=== PATIENT | male | born 1945 | race Caucasian/White ===

== ENCOUNTER 2022-01-05 10:32 | Observation (INO) | payer MEDICARE ==
[2022-01-05] MEDS ORDERED: Sodium Chloride 0.9% 1000 ML 1,000 ML IV STA (10:41)
[2022-01-05] MEDS ORDERED: Sodium Chloride 0.9% 1000 ML 1,000 ML ONE (11:03)
--- NOTE | 2022-01-05 11:05 | ERPHSYRPT ---
- History of Present Illness Time Seen by Provider: 01/05/22 10:45 Source: patient, family Exam Limitations: clinical condition Patient Subjective Stated Complaint: pt sent over from coumadin clinic today for abnormal labs and weakness, he states he lost balance and fell last week, states hit hes head and abd, has bruising to abd Triage Nursing Assessment: pt alert, arrived per wc, alert, resp easy, skin w/d/p, abd soft with bruising to abd, has edema to lower legs with redness that is chronic for him, Physician History: Patient is a 76-year-old male who is followed in Coumadin clinic who was found today to have a globin of an INR of 2.2 and a sodium of 125 his last measured sodium was 124 and he does have problems with chronic hyponatremia. He was sent to the ER because he is a little bit confused and very lethargic and his is concerned. He did fall approximately a week ago he did hit his head and he did hit his abdomen and he has bruising of the abdominal wall. Timing/Duration: week(s) (1) Severity: moderate Modifying Factors: Improves With: nothing Associated Symptoms: malaise Allergies/Adverse Reactions: Penicillins Allergy (Verified 01/05/22 10:50) strawberry Allergy (Verified 01/05/22 10:50) watermelon Allergy (Verified 01/05/22 10:50) Home Medications: Brimonidine Tartrate 1 drop OP BID 08/01/19 [History] Brimonidine/Dorzolamide/Pf [Brimonidine 0.15%-Dorzolam 2%] 1 drop OP BID 08/01/19 [History] Budesonide/Formoterol Fumarate [Symbicort 160-4.5 Mcg Inhaler] 1 puff IH BID 08/01/19 [History] Bumetanide 1 mg PO BID@0800,1400 08/01/19 [History] Calcium Citrate/Vitamin D3 [Calcium Citrate - Vit D Caplet] 1 tab PO DAILY [History] Cyanocobalamin (Vitamin B-12) [Vitamin B-12] 500 mcg PO DAILY 08/01/19 [History] Docusate Sodium 100 mg [Colace 100 MG] 100 mg PO DAILY 08/01/19 [History] Famotidine [Pepcid] 40 mg PO DAILY 08/01/19 [History] Finasteride 5 mg PO DAILY 08/01/19 [History] Hydrocodone/Acetaminophen [Hydrocodon-Acetaminophn 10-325] 1 tab PO Q6H PRN PRN 08/01/19 [History] Levothyroxine Sodium 50 mcg PO QAM 08/01/19 [History] Magnesium Oxide 400 mg [Mag-Ox 400] 400 mg PO DAILY 08/01/19 [History] Metoprolol Tartrate 25 mg [Lopressor 25MG Tab] 25 mg PO BID 08/01/19 [History] Montelukast Sodium 10 mg [Singulair 10 MG] 10 mg PO DAILY 08/01/19 [History] Netarsudil Mesylat/Latanoprost [Rocklatan 0.02%-0.005% Eye Drp] 1 drop OP HS 08/01/19 [History] Potassium Chloride 50 meq PO QID 08/01/19 [History] Theophylline Anhydrous 300 mg* [Theodur 300MG] 300 mg PO BID 08/01/19 [Histo ry] Warfarin Sodium 2 mg [Coumadin 2 MG] 2 mg PO SUMOWEFRSA@1800 08/01/19 [History] Lovastatin 10 mg PO HS 08/15/19 [History] Nitroglycerin [Nitrostat] 0.4 mg SL Q5MIN PRN MR X 3 PRN 08/15/19 [History] Zolpidem Tartrate 5 mg PO HS 08/15/19 [History] metOLazone [Metolazone] 2.5 mg PO MOWEFR 08/15/19 [History] Buspirone HCl [Buspar] 5 mg PO BID 04/24/21 [History] Dorzolamide HCl/Pf [Dorzolamide 2% Eye Drop] 2 drops OP TID 06/05/21 [History] Amiloride HCl 5 mg PO .DAILY @ 2PM 07/08/21 [History] Tamsulosin HCl 0.4 mg [Flomax 0.4 MG] 0.4 mg PO DAILY 01/01/22 [History] Hx Tetanus, Diphtheria Vaccination/Date Given: No Hx Influenza Vaccination/Date Given: Yes Hx Pneumococcal Vaccination/Date Given: Yes Immunizations Up to Date: Yes Travel Risk - International Travel Have you traveled outside of the country in past 3 weeks: No - Coronavirus Screening Are you exhibiting any of the following symptoms?: No Close contact with a COVID-19 positive Pt in past 14-21 Days: No - Vaccine Status Have you recieved a Covid-19 vaccination: Yes Director Of Institutional Giving: Pfizer - Vaccination Dates Date of 2cond Vaccination (if applicable): 2020 - Review of Systems Constitutional: Lethargy, Malaise, Weakness, No Fever, No Chills Eyes: No Symptoms Ears, Nose, & Throat: No Symptoms Respiratory: No Cough, No Dyspnea Cardiac: No Chest Pain, No Edema, No Syncope Abdominal/Gastrointestinal: Abdominal Pain, Other (Ecchymoses anterior abdominal wall), No Nausea, No Vomiting, No Diarrhea Genitourinary Symptoms: No Dysuria Musculoskeletal: No Back Pain, No Neck Pain Skin: Rash Neurological: No Dizziness, No Focal Weakness, No Sensory Changes Psychological: No Symptoms Endocrine: No Symptoms All Other Systems: Reviewed and Negative - Past Medical History Pertinent Past Medical History: Yes Neurological History: No Pertinent History ENT History: No Pertinent History Cardiac History: Congestive Heart Failure, Coronary Artery Disease, Hypertension Respiratory History: COPD Endocrine Medical History: Hypothyroidism Musculoskeletal History: Arthritis GI Medical History: Hernia Male Reproductive Disorders: Prostate Problems - Past Surgical History Past Surgical History: Yes Cardiac: CABG, Cardiac Catheterization - Social History Smoking Status: Former smoker Exposure to second hand smoke: No Drug Use: none Patient Lives Alone: No - Nursing Vital Signs Nursing Vital Signs: Initial Vital Signs Temperature 97.2 F 01/05/22 10:37 Pulse Rate 84 01/05/22 10:37 Respiratory Rate 18 01/05/22 10:37 Blood Pressure 123/84 01/05/22 10:37 O2 Sat by Pulse Oximetry 94 L 01/05/22 10:37 Pain Scale Pain Intensity 0 - Physical Exam General Appearance: moderate distress, alert Eye Exam: PERRL/EOMI, eyes nml inspection Ears, Nose, Throat Exam: normal ENT inspection, TMs normal, pharynx normal, moist mucous membranes Neck Exam: normal inspection, non-tender, supple, full range of motion Respiratory Exam: normal breath sounds, lungs clear, No respiratory distress Cardiovascular Exam: regular rate/rhythm, normal heart sounds, normal peripheral pulses Gastrointestinal/Abdomen Exam: soft, normal bowel sounds, tenderness, No mass Back Exam: normal inspection, normal range of motion, No CVA tenderness, No vertebral tenderness Extremity Exam: normal inspection, normal range of motion, pelvis stable Neurologic Exam: alert, oriented x 3, cooperative, normal mood/affect, nml cerebellar function, nml station & gait, sensation nml, No motor deficits Skin Exam: normal color, warm, dry, No rash Lymphatic Exam: No adenopathy SpO2 Interpretation: normal SpO2: 94 O2 Delivery: Room Air - Course Nursing assessment & vital signs reviewed: Yes EKG Interpreted by Me: RATE (132), A-fib, NORMAL AXIS - Radiology Exams Chest X-ray Interpretation: Other (chest x-ray no acute changes findings of COPD) Ordered Tests: Active Orders 24 hr Category Date Time Status EKG-ER Only STAT Care 01/05/22 10:41 Active IV Insertion STAT Care 01/05/22 10:41 Active ABDOMEN AND PELVIS W CONTRAST [CT] Stat Exams 01/05/22 10:42 Ordered CHEST 1 VIEW (PORTABLE) Stat Exams 01/05/22 11:22 Completed HEAD WITHOUT CONTRAST [CT] Stat Exams 01/05/22 11:57 Taken AMYLASE Stat Lab 01/05/22 11:03 Completed BLOOD CULTURE Stat Lab 01/05/22 11:03 Received CBC W DIFF Stat Lab 01/05/22 11:03 Completed CMP Stat Lab 01/05/22 11:03 Completed LIPASE Stat Lab 01/05/22 11:03 Completed Lactic Acid Stat Lab 01/05/22 10:56 Completed Manual Differential NC Stat Lab 01/05/22 11:03 Completed TROPONIN Q3H Lab 01/05/22 11:03 Completed TROPONIN Q3H Lab 01/05/22 13:45 Ordered TROPONIN Q3H Lab 01/05/22 16:45 Ordered TROPONIN Q3H Lab 01/05/22 19:45 Ordered TROPONIN Q3H Lab 01/05/22 22:45 Ordered UA W/RFX CULTURE Stat Lab 01/05/22 11:28 Ordered Medication Summary Generic Name Dose Route Start Last Admin Trade Name Freq PRN Reason Stop Dose Admin Meropenem 1 g/ Sodium Chloride 100 mls @ 200 mls/hr 01/05/22 11:59 IV 01/05/22 12:28 STAT ONE Discontinued Medications Generic Name Dose Route Start Last Admin Trade Name Freq PRN Reason Stop Dose Admin Methylprednisolone Sodium 0 mg 01/05/22 11:50 01/05/22 11:53 Succinate 125 mg/ Sterile IV 01/05/22 11:51 125 mg Water 2 ml STAT ONE Administration Diphenhydramine HCl 50 mg 01/05/22 11:49 01/05/22 11:52 Diphenhydramine Hcl 50 Mg/Ml Vial IV 01/05/22 11:50 50 mg STAT ONE Administration Diphenhydramine HCl Confirm 01/05/22 11:51 Diphenhydramine Hcl 50 Mg/Ml Vial Administered 01/05/22 11:52 Dose 50 mg .ROUTE .STK-MED ONE Sodium Chloride 1,000 mls @ 999 mls/hr 01/05/22 10:41 01/05/22 11:04 Sodium Chloride 0.9% 1000 Ml IV 01/05/22 11:41 999 mls/hr .Q1H1M STA Administration Sodium Chloride Confirm 01/05/22 11:03 Sodium Chloride 0.9% 1000 Ml Administered 01/05/22 11:04 Dose 1,000 mls @ ud .ROUTE .STK-MED ONE Methylprednisolone Sodium Succinate Confirm 01/05/22 11:51 Methylprednis Sod Succ 125 Mg/2 Ml Vial Administered 01/05/22 11:52 Dose 125 mg .ROUTE .STK-MED ONE Sterile Water Confirm 01/05/22 11:51 Water For Injection,Sterile 10 Ml Vial Administered 01/05/22 11:52 Dose 10 ml IJ .STK-MED ONE Lab/Rad Data: Laboratory Result Diagrams 01/05/22 11:03 01/05/22 11:03 Laboratory Results 01/05/22 01/05/22 01/05/22 Range/Units 11:03 11:03 11:03 WBC (4.0-10.5) K/mm3 RBC (4.1-5.6) M/mm3 Hgb (12.5-18.0) gm/dl Hct (42-50) % MCV (78-100) fl MCH (26-32) pg MCHC (32-36) g/dl RDW (11.5-14.0) % Plt Count (150-450) K/mm3 MPV (7.5-11.0) fl Sodium 125 L (137-145) mmol/L Potassium 4.2 (3.5-5.1) mmol/L Chloride 89 L (98-107) mmol/L Carbon Dioxide 20 L (22-30) mmol/L Anion Gap 19.6 H (5-15) MEQ/L BUN 32 H (9-20) mg/dL Creatinine 1.21 (0.66-1.25) mg/dL Estimated GFR > 60.0 ML/MIN Glucose 129 H (74-106) mg/dL Lactic Acid (0.4-2.0) Calcium 9.7 (8.4-10.2) mg/dL Total Bilirubin 2.00 H (0.2-1.3) mg/dL AST 34 (17-59) U/L ALT 24 (0-50) U/L Alkaline Phosphatase 107 (38-126) U/L Troponin I 0.025 (0.000-0.034) ng/mL Serum Total Protein 8.3 H (6.3-8.2) g/dL Albumin 4.7 (3.5-5.0) g/dL Amylase 128 H (30-110) U/L Lipase 337 H (23-300) U/L Theophylline 28.9 H* (10-20) ug/mL 01/05/22 01/05/22 Range/Units 11:03 10:56 WBC 19.2 H (4.0-10.5) K/mm3 RBC 5.69 H (4.1-5.6) M/mm3 Hgb 18.0 (12.5-18.0) gm/dl Hct 49.7 (42-50) % MCV 87.3 (78-100) fl MCH 31.6 (26-32) pg MCHC 36.2 H (32-36) g/dl RDW 16.8 H (11.5-14.0) % Plt Count 273 (150-450) K/mm3 MPV 11.3 H (7.5-11.0) fl Sodium (137-145) mmol/L Potassium (3.5-5.1) mmol/L Chloride (98-107) mmol/L Carbon Dioxide (22-30) mmol/L Anion Gap (5-15) MEQ/L BUN (9-20) mg/dL Creatinine (0.66-1.25) mg/dL Estimated GFR ML/MIN Glucose (74-106) mg/dL Lactic Acid 3.6 H (0.4-2.0) Calcium (8.4-10.2) mg/dL Total Bilirubin (0.2-1.3) mg/dL AST (17-59) U/L ALT (0-50) U/L Alkaline Phosphatase (38-126) U/L Troponin I (0.000-0.034) ng/mL Serum Total Protein (6.3-8.2) g/dL Albumin (3.5-5.0) g/dL Amylase (30-110) U/L Lipase (23-300) U/L Theophylline (10-20) ug/mL - Progress Progress: unchanged Discussed with : Ilene Will see patient in: hospital (observation) - Departure Departure Disposition: Observation Clinical Impression: Sepsis, Hyponatremia, Theophylline toxicity, Dehydration Condition: Fair Critical Care Time: No Referrals: [facility] [Primary Care Provider] - Follow up/PCP as directed
[2022-01-05 11:11] LABS: Hematocrit 49.7 % (42-50); Mean Cell Volume 87.3 fl (78-100); Mean Corpuscular Hemoglobin 31.6 pg (26-32); Mean Corpuscular Hgb Concent. 36.2 g/dl (32-36); Mean Platelet Volume 11.3 fl (7.5-11.0); Platelet Count 273 K/mm3 (150-450); Red Blood Count 5.69 M/mm3 (4.1-5.6); Red Cell Distribution Width 16.8 % (11.5-14.0); White Blood Count 19.2 K/mm3 (4.0-10.5)
[2022-01-05 11:22] LABS: ALBUMIN 4.7 g/dL (3.5-5.0); ALKALINE PHOSPHATASE 107 U/L (38-126); AMYLASE 128 U/L (30-110); ANION GAP 19.6 MEQ/L (5-15); BLOOD UREA NITROGEN 32 mg/dL (9-20); CHLORIDE 89 mmol/L (98-107); Calcium 9.7 mg/dL (8.4-10.2); Carbon Dioxide 20 mmol/L (22-30); Creatinine 1 1.21 mg/dL (0.66-1.25); EST GLOMERULAR FILTRATION RATE > 60.0 ML/MIN; Glucose 129 mg/dL (74-106); LIPASE 337 U/L (23-300); Potassium 4.2 mmol/L (3.5-5.1); SGOT/AST 34 U/L (17-59); SGPT/ALT 24 U/L (0-50); SODIUM 125 mmol/L (137-145); Total Protein 8.3 g/dL (6.3-8.2)
--- NOTE | 2022-01-05 11:33 | XRAY ---
Indication: Pain following fall. Comparison: April 30, 2006. Portable chest again demonstrates COPD with increasing mild bibasilar fibrosis/scarring. Heart not enlarged again with cardiac valve replacement. Bony thorax intact again with osteopenia and degenerative changes. No new/acute findings.
[2022-01-05] MEDS ORDERED: BENADRYL 50 MG/ML IV ONE (11:49)
[2022-01-05] MEDS ORDERED: solu-MEDROL 125 MG, Sterile H2O 10 ml 2 ML IV ONE ×2 (11:50)
[2022-01-05] MEDS ORDERED: solu-MEDROL ONE (11:51)
[2022-01-05] MEDS ORDERED: BENADRYL 50 MG/ML ONE (11:51)
[2022-01-05] MEDS ORDERED: Sterile H2O 10 ml IJ ONE (11:51)
[2022-01-05] MEDS ORDERED: Merrem 1 GM 1 G in Sodium Chloride 100ML MINI-BAG PLUS 100 ML IV ONE (11:59)
[2022-01-05] MEDS ORDERED: Merrem 1 GM IV ONE (12:06)
[2022-01-05] MEDS ORDERED: Sodium Chloride 0.9% 100 ML BAG 100 ML ONE (12:07)
--- NOTE | 2022-01-05 12:09 | XRAY ---
Indication: Right parietal head injury following fall days ago. Multiple contiguous axial images obtained through the head without contrast. Comparison: None Age-appropriate global atrophy with minimal periventricular degenerative micro-ischemia bilaterally. No acute intracranial hemorrhage, abnormal extra-axial fluid collection, or mass effect. Fourth ventricle is midline without hydrocephalus. Bony calvarium intact. Visualized paranasal sinuses and mastoid air cells are clear. Impression: Nonacute senile brain.
[2022-01-05 12:40] LABS: Appearance CLEAR (CLEAR); Bilirubin NEGATIVE (NEGATIVE); Dipstick done @ ? MAIN LAB; Glucose NEGATIVE (NEGATIVE); Ketones NEGATIVE (NEGATIVE); Nitrite NEGATIVE (NEGATIVE); Protein,Urine Dip NEGATIVE (Negative); RBC TRACE-INTACT Ery/ul (0-5); Specific Gravity 1.015 (1.005-1.025); Urobilinogen 0.2 mg/dL (0-1)
[2022-01-05] MEDS ORDERED: Merrem 1 GM 1 G in Sodium Chloride 100ML MINI-BAG PLUS 100 ML IV SCH (12:45)
[2022-01-05 12:54] LABS: Urine Cultured Indicated? NO
[2022-01-05 13:09] LABS: INFLUENZA A NEGATIVE (NEGATIVE); INFLUENZA B NEGATIVE (NEGATIVE); RESPIRATORY SYNCTIAL VIRUS NEGATIVE (Negative); SARS-CoV-2 Xpert Express NEGATIVE (NEGATIVE)
--- NOTE | 2022-01-05 13:24 | XRAY ---
Indication: Right head injury following fall. Right lower quadrant pain. Blood thinner therapy. Multiple contiguous images obtained through the abdomen and pelvis using 80 cc Isovue 370 contrast. Comparison: None Lung bases demonstrates pulmonary emphysema and tiny right costophrenic angle calcified granuloma. Heart not enlarged. Noncontrasted stomach and bowel loops appear nonobstructed. Appendix not visualized. Scattered descending and sigmoid diverticulosis without diverticulitis. Both kidneys enhance and excrete with a few tiny bilateral renal cysts, largest left upper pole measuring 5 mm. Urinary bladder near empty with Mata balloon catheter in situ. Inferior right lobe liver demonstrates 5 mm cyst. Gallbladder demonstrates tiny stones/gravel in the dependent portion. No free fluid/air. Remaining liver, gallbladder, pancreas, spleen, adrenal glands, kidneys, ureters, and bladder are unremarkable. Mild scattered aortoiliac calcifications. No AAA or pathologic retroperitoneal lymphadenopathy. Osseous structures intact with osteopenia and moderate L3-S1 degenerative disc disease. No ventral inguinal hernias. Impression: 1. Pulmonary emphysema, colonic diverticulosis, tiny hepatic cyst, tiny gallstones/gravel, tiny bilateral renal cysts, chronic bony findings, and old granulomatous disease. 2. Remaining CT abdomen/pelvis with contrast exam is negative.
[2022-01-05 13:44] LABS: ANISOCYTOSIS 1+; BAND 1 % (0.0-2.0); Lymphocytes 9 % (24-44); Monocyte 2 % (0.0-12.0); Platelet Estimate NORMAL (NORMAL); Total Cells Counted 100; Toxic Granulation 1+
[2022-01-05] MEDS ORDERED: Cardizem IV 50 MG/10 ML IV ONE ×2 (14:08→14:11)
[2022-01-05] MEDS: CARDIZEM DRIP 100 MG/100 ML D5W 100 ML IV PRN ×2 (14:16→23:03)
[2022-01-05] MEDS: Sodium Chloride 0.9% 1000 ML 1,000 ML IV SCH ×2 (15:41→22:31)
[2022-01-05] MEDS ORDERED: PHARMACY DOSING REQUEST MC ONE (15:53)
[2022-01-05] MEDS ORDERED: Nitrostat 0.4 MG Tablet SL PRN (16:32)
[2022-01-05] MEDS: HYDROCODONE-ACETAMIN 10-325 MG PO PRN ×2 (17:01→23:04)
[2022-01-05] MEDS: Klor Con 10 MEQ PO SCH ×2 (17:02→20:25)
[2022-01-05] MEDS: AMILORIDE HCL PO SCH (17:12)
[2022-01-05] MEDS ORDERED: MEDICATION INTERVENTION MC SCH ×3 (17:45)
[2022-01-05] MEDS: PROVENTIL 2.5 MG/3 ML NEB IH SCH (18:24)
[2022-01-05] MEDS: Advair Hfa 115/21 Common canister IH SCH (18:24)
--- NOTE | 2022-01-05 20:51 | PCM.HP ---
History of Present Illness - Chief Complaint Chief Complaint: weakness for 2-3 days History of Present Illness: is a 76 year old male.was sent to the ER because he is a little bit confused and very lethargic and his is concerned. He did fall approximately a week ago he did hit his head and he did hit his abdomen and he has bruising of the abdominal wall. Timing/Duration: week(s) (1) Severity: moderate Modifying Factors: Improves With: nothing Associated Symptoms: malaise Patient is followed in Coumadin clinic who was found today to have a globin of an INR of 2.2 and a sodium of 125 his last measured sodium was 124 and he does have problems with chronic hyponatremia. - Review of Systems Constitutional: Malaise, Weakness, No Fever, No Chills Eyes: No Symptoms Ears, Nose, & Throat: No Symptoms Respiratory: Orthopnea, Short Of Breath, No Cough Cardiac: Orthopnea, PND, No Chest Pain, No Edema, No Syncope Abdominal/Gastrointestinal: No Abdominal Pain, No Nausea, No Vomiting, No Diarrhea Genitourinary Symptoms: No Dysuria Musculoskeletal: No Back Pain, No Neck Pain Skin: No Rash Neurological: No Dizziness, No Focal Weakness, No Sensory Changes Psychological: No Symptoms Endocrine: No Symptoms Hematologic/Lymphatic: No Symptoms Immunological/Allergic: No Symptoms Medications & Allergies Home Medications: Home Medication List Brimonidine Tartrate 1 drop OP BID 08/01/19 [History Confirmed 01/05/22] Brimonidine/Dorzolamide/Pf [Brimonidine 0.15%-Dorzolam 2%] 1 drop OP BID 08/01/19 [History Confirmed 01/05/22] Budesonide/Formoterol Fumarate [Symbicort 160-4.5 Mcg Inhaler] 1 puff IH BID 08/01/19 [History Confirmed 01/05/22] Bumetanide 1 mg PO BID@0800,1400 08/01/19 [History Confirmed 01/05/22] Calcium Citrate/Vitamin D3 [Calcium Citrate - Vit D Caplet] 1 tab PO DAILY 08/01/19 [History Confirmed 01/05/22] Cyanocobalamin (Vitamin B-12) [Vitamin B-12] 500 mcg PO DAILY 08/01/19 [History Confirmed 01/05/22] Docusate Sodium 100 mg [Colace 100 MG] 100 mg PO DAILY 08/01/19 [History Confirmed 01/05/22] Famotidine [Pepcid] 40 mg PO DAILY 08/01/19 [History Confirmed 01/05/22] Finasteride 5 mg PO DAILY 08/01/19 [History Confirmed 01/05/22] Hydrocodone/Acetaminophen [Hydrocodon-Acetaminophn 10-325] 1 tab PO Q6H PRN PRN 08/01/19 [History Confirmed 01/05/22] Levothyroxine Sodium 50 mcg PO QAM 08/01/19 [History Confirmed 01/05/22] Magnesium Oxide 400 mg [Mag-Ox 400] 400 mg PO DAILY 08/01/19 [History Confirmed 01/05/22] Metoprolol Tartrate 25 mg [Lopressor 25MG Tab] 25 mg PO BID 08/01/19 [History Confirmed 01/05/22] Montelukast Sodium 10 mg [Singulair 10 MG] 10 mg PO DAILY 08/01/19 [History Confirmed 01/05/22] Netarsudil Mesylat/Latanoprost [Rocklatan 0.02%-0.005% Eye Drp] 1 drop OP HS 08/01/19 [History Confirmed 01/05/22] Potassium Chloride 50 meq PO QID 08/01/19 [History Confirmed 01/05/22] Theophylline Anhydrous 300 mg* [Theodur 300MG] 300 mg PO BID 08/01/19 [History Confirmed 01/05/22] Warfarin Sodium 2 mg [Coumadin 2 MG] 0 mg PO UD@1800 08/01/19 [History Confirmed 01/05/22] Lovastatin 10 mg PO HS 08/15/19 [History Confirmed 01/05/22] Nitroglycerin [Nitrostat] 0.4 mg SL Q5MIN PRN MR X 3 PRN 08/15/19 [History Co nfirmed 01/05/22] Zolpidem Tartrate 5 mg PO HS 08/15/19 [History Confirmed 01/05/22] metOLazone [Metolazone] 2.5 mg PO MOWEFR 08/15/19 [History Confirmed 01/05/22] Buspirone HCl [Buspar] 5 mg PO BID 04/24/21 [History Confirmed 01/05/22] Dorzolamide HCl/Pf [Dorzolamide 2% Eye Drop] 2 drops OP TID 06/05/21 [History Confirmed 01/05/22] Amiloride HCl 5 mg PO .DAILY @ 2PM 07/08/21 [History Confirmed 01/05/22] Tamsulosin HCl 0.4 mg [Flomax 0.4 MG] 0.4 mg PO DAILY 01/01/22 [History Confirmed 01/05/22] Allergies/Adverse Reactions: Allergies Allergy/AdvReac Type Severity Reaction Status Date / Time Penicillins Allergy Verified 01/05/22 10:50 strawberry Allergy Verified 01/05/22 10:50 watermelon Allergy Verified 01/05/22 10:50 - Past Medical History Past Medical History: Yes Neurological History: No Pertinent History ENT History: Cataracts, Glaucoma Cardiac History: Arrhythmia, Congestive Heart Failure, Coronary Artery Disease, Hypertension CARDIAC HISTORY: Hypertension Respiratory History: COPD Endocrine Medical History: Hypothyroidism Musculoskelatal History: Arthritis GI Medical History: Hernia Male Reproductive Disorders: Prostate Problems Comment: A-FIB - Past Surgical History Past Surgical History: Yes Cardiac History: CABG, Cardiac Catheterization, Valve Replacement GI Surgical History: Hernia Repair Male Surgical History: Prostate Surgery - Social History Smoking Status: Former smoker Exposure to second hand smoke: No Alcohol: None Drug Use: none - Physical Exam Vital Signs: Vital Signs - 24 hr Temp Pulse Resp BP BP Pulse Ox 01/05/22 20:04 99 H 21 110/68 01/05/22 20:00 96.3 F 99 H 21 110/68 98 01/05/22 19:58 97.7 F 108 H 18 116/72 96 01/05/22 19:00 102 H 21 102/77 102/77 98 01/05/22 18:26 106 H 19 97 01/05/22 18:25 105 H 20 97 01/05/22 18:00 100 H 18 114/60 114/60 97 01/05/22 17:16 96.2 F 120 H 19 123/83 98 01/05/22 17:00 113 H 19 104/70 01/05/22 16:00 117 H 17 120/82 01/05/22 15:37 108 H 118/83 01/05/22 15:05 97.6 F 55 L 16 123/83 88 L 01/05/22 15:00 120 H 123/83 99 01/05/22 12:08 94 L 01/05/22 11:36 124 H 16 107/84 95 01/05/22 10:37 97.2 F 84 18 123/84 94 L General Appearance: no apparent distress, moderate distress, alert Neurologic Exam: alert, oriented x 3, cooperative, normal mood/affect, sensation nml, No motor deficits Eye Exam: PERRL/EOMI, eyes nml inspection Ears, Nose, Throat Exam: normal ENT inspection, TMs normal, pharynx normal, moist mucous membranes Neck Exam: normal inspection, non-tender, supple, full range of motion Respiratory Exam: diminished breath sounds, crackles/rales, rhonchi, wheezing, No respiratory distress Cardiovascular Exam: irregular, capillary refill >3 sec, edema Gastrointestinal/Abdomen Exam: soft, normal bowel sounds, No tenderness, No mass Back Exam: normal inspection, normal range of motion, No CVA tenderness, No vertebral tenderness Extremity Exam: normal inspection, normal range of motion, pelvis stable Skin Exam: normal color, warm, dry, No rash Lymphatic Exam: No adenopathy Results - Labs Lab/Micro Results: Lab Results-Last 24 Hours 01/05/22 01/05/22 01/05/22 Range/Units 10:56 11:03 11:03 WBC 19.2 H (4.0-10.5) K/mm3 RBC 5.69 H (4.1-5.6) M/mm3 Hgb 18.0 (12.5-18.0) gm/dl Hct 49.7 (42-50) % MCV 87.3 (78-100) fl MCH 31.6 (26-32) pg MCHC 36.2 H (32-36) g/dl RDW 16.8 H (11.5-14.0) % Plt Count 273 (150-450) K/mm3 MPV 11.3 H (7.5-11.0) fl Segmented Neutrophils 88 H (36.-66.) % Band Neutrophils 1 (0.0-2.0) % Lymphocytes (Manual) 9 L (24-44) % Monocytes (Manual) 2 (0.0-12.0) % Toxic Granulation 1+ Platelet Estimate NORMAL (NORMAL) RBC Morphology ABNORMAL Anisocytosis 1+ Sodium 125 L (137-145) mmol/L Potassium 4.2 (3.5-5.1) mmol/L Chloride 89 L (98-107) mmol/L Carbon Dioxide 20 L (22-30) mmol/L Anion Gap 19.6 H (5-15) MEQ/L BUN 32 H (9-20) mg/dL Creatinine 1.21 (0.66-1.25) mg/dL Estimated GFR > 60.0 ML/MIN Glucose 129 H (74-106) mg/dL Lactic Acid 3.6 H (0.4-2.0) Calcium 9.7 (8.4-10.2) mg/dL Total Bilirubin 2.00 H (0.2-1.3) mg/dL AST 34 (17-59) U/L ALT 24 (0-50) U/L Alkaline Phosphatase 107 (38-126) U/L Troponin I (0.000-0.034) ng/mL Serum Total Protein 8.3 H (6.3-8.2) g/dL Albumin 4.7 (3.5-5.0) g/dL Amylase 128 H (30-110) U/L Lipase 337 H (23-300) U/L Procalcitonin (0.030-0.080) ng/mL Urinalys Dipstick Clnc Urine Color (YELLOW) Urine Appearance (CLEAR) Urine pH (5-6) Ur Specific [place] (1.005-1.025) POC Urine Protein Conf (Negative) Urine Ketones (NEGATIVE) Urine Nitrite (NEGATIVE) Urine Bilirubin (NEGATIVE) Urine Urobilinogen (0-1) mg/dL Urine Leukocytes (NEGATIVE) Urine WBC (Auto) (0-5) /HPF Urine RBC (Auto) (0-2) /HPF U Hyaline Cast (Auto) (0-2) /LPF U Epithel Cells (Auto) (FEW) /HPF Urine Bacteria (Auto) (NEGATIVE) /HPF Urine RBC (0-5) Pernell/ul Ur Culture Indicated? Urine Glucose (NEGATIVE) mg/dL Theophylline (10-20) ug/mL Influenza Type A Ag (NEGATIVE) Influenza Type B Ag (NEGATIVE) RSV (PCR) (Negative) SARS-CoV-2 (PCR) (NEGATIVE) 05/10/2801/05/22 01/05/22 Range/Units 11:03 11:03 11:03 WBC (4.0-10.5) K/mm3 RBC (4.1-5.6) M/mm3 Hgb (12.5-18.0) gm/dl Hct (42-50) % MCV (78-100) fl MCH (26-32) pg MCHC (32-36) g/dl RDW (11.5-14.0) % Plt Count (150-450) K/mm3 MPV (7.5-11.0) fl Segmented Neutrophils (36.-66.) % Band Neutrophils (0.0-2.0) % Lymphocytes (Manual) (24-44) % Monocytes (Manual) (0.0-12.0) % Toxic Granulation Platelet Estimate (NORMAL) RBC Morphology Anisocytosis Sodium (137-145) mmol/L Potassium (3.5-5.1) mmol/L Chloride (98-107) mmol/L Carbon Dioxide (22-30) mmol/L Anion Gap (5-15) MEQ/L BUN (9-20) mg/dL Creatinine (0.66-1.25) mg/dL Estimated GFR ML/MIN Glucose (74-106) mg/dL Lactic Acid (0.4-2.0) Calcium (8.4-10.2) mg/dL Total Bilirubin (0.2-1.3) mg/dL AST (17-59) U/L ALT (0-50) U/L Alkaline Phosphatase (38-126) U/L Troponin I 0.025 (0.000-0.034) ng/mL Serum Total Protein (6.3-8.2) g/dL Albumin (3.5-5.0) g/dL Amylase (30-110) U/L Lipase (23-300) U/L Procalcitonin 0.256 H (0.030-0.080) ng/mL Urinalys Dipstick Clnc Urine Color (YELLOW) Urine Appearance (CLEAR) Urine pH (5-6) Ur Specific [place] (1.005-1.025) POC Urine Protein Conf (Negative) Urine Ketones (NEGATIVE) Urine Nitrite (NEGATIVE) Urine Bilirubin (NEGATIVE) Urine Urobilinogen (0-1) mg/dL Urine Leukocytes (NEGATIVE) Urine WBC (Auto) (0-5) /HPF Urine RBC (Auto) (0-2) /HPF U Hyaline Cast (Auto) (0-2) /LPF U Epithel Cells (Auto) (FEW) /HPF Urine Bacteria (Auto) (NEGATIVE) /HPF Urine RBC (0-5) Pernell/ul Ur Culture Indicated? Urine Glucose (NEGATIVE) mg/dL Theophylline 28.9 H* (10-20) ug/mL Influenza Type A Ag (NEGATIVE) Influenza Type B Ag (NEGATIVE) RSV (PCR) (Negative) SARS-CoV-2 (PCR) (NEGATIVE) 01/05/22 01/05/22 01/05/22 Range/Units 11:28 12:15 12:59 WBC (4.0-10.5) K/mm3 RBC (4.1-5.6) M/mm3 Hgb (12.5-18.0) gm/dl Hct (42-50) % MCV (78-100) fl MCH (26-32) pg MCHC (32-36) g/dl RDW (11.5-14.0) % Plt Count (150-450) K/mm3 MPV (7.5-11.0) fl Segmented Neutrophils (36.-66.) % Band Neutrophils (0.0-2.0) % Lymphocytes (Manual) (24-44) % Monocytes (Manual) (0.0-12.0) % Toxic Granulation Platelet Estimate (NORMAL) RBC Morphology Anisocytosis Sodium (137-145) mmol/L Potassium (3.5-5.1) mmol/L Chloride (98-107) mmol/L Carbon Dioxide (22-30) mmol/L Anion Gap (5-15) MEQ/L BUN (9-20) mg/dL Creatinine (0.66-1.25) mg/dL Estimated GFR ML/MIN Glucose (74-106) mg/dL Lactic Acid 3.3 H (0.4-2.0) Calcium (8.4-10.2) mg/dL Total Bilirubin (0.2-1.3) mg/dL AST (17-59) U/L ALT (0-50) U/L Alkaline Phosphatase (38-126) U/L Troponin I (0.000-0.034) ng/mL Serum Total Protein (6.3-8.2) g/dL Albumin (3.5-5.0) g/dL Amylase (30-110) U/L Lipase (23-300) U/L Procalcitonin (0.030-0.080) ng/mL Urinalys Dipstick Clnc MAIN LAB Urine Color LT.YELLOW (YELLOW) Urine Appearance CLEAR (CLEAR) Urine pH 7.0 (5-6) Ur Specific [place] 1.015 (1.005-1.025) POC Urine Protein Conf NEGATIVE (Negative) Urine Ketones NEGATIVE (NEGATIVE) Urine Nitrite NEGATIVE (NEGATIVE) Urine Bilirubin NEGATIVE (NEGATIVE) Urine Urobilinogen 0.2 (0-1) mg/dL Urine Leukocytes NEGATIVE (NEGATIVE) Urine WBC (Auto) NONE (0-5) /HPF Urine RBC (Auto) NONE (0-2) /HPF U Hyaline Cast (Auto) 3-5 (0-2) /LPF U Epithel Cells (Auto) NONE (FEW) /HPF Urine Bacteria (Auto) NONE (NEGATIVE) /HPF Urine RBC TRACE-INTACT (0-5) Pernell/ul Ur Culture Indicated? NO Urine Glucose NEGATIVE (NEGATIVE) mg/dL Theophylline (10-20) ug/mL Influenza Type A Ag NEGATIVE (NEGATIVE) Influenza Type B Ag NEGATIVE (NEGATIVE) RSV (PCR) NEGATIVE (Negative) SARS-CoV-2 (PCR) NEGATIVE (NEGATIVE) 01/05/22 01/05/22 Range/Units 13:30 17:05 WBC (4.0-10.5) K/mm3 RBC (4.1-5.6) M/mm3 Hgb (12.5-18.0) gm/dl Hct (42-50) % MCV (78-100) fl MCH (26-32) pg MCHC (32-36) g/dl RDW (11.5-14.0) % Plt Count (150-450) K/mm3 MPV (7.5-11.0) fl Segmented Neutrophils (36.-66.) % Band Neutrophils (0.0-2.0) % Lymphocytes (Manual) (24-44) % Monocytes (Manual) (0.0-12.0) % Toxic Granulation Platelet Estimate (NORMAL) RBC Morphology Anisocytosis Sodium (137-145) mmol/L Potassium (3.5-5.1) mmol/L Chloride (98-107) mmol/L Carbon Dioxide (22-30) mmol/L Anion Gap (5-15) MEQ/L BUN (9-20) mg/dL Creatinine (0.66-1.25) mg/dL Estimated GFR ML/MIN Glucose (74-106) mg/dL Lactic Acid (0.4-2.0) Calcium (8.4-10.2) mg/dL Total Bilirubin (0.2-1.3) mg/dL AST (17-59) U/L ALT (0-50) U/L Alkaline Phosphatase (38-126) U/L Troponin I 0.032 0.074 H* (0.000-0.034) ng/mL Serum Total Protein (6.3-8.2) g/dL Albumin (3.5-5.0) g/dL Amylase (30-110) U/L Lipase (23-300) U/L Procalcitonin (0.030-0.080) ng/mL Urinalys Dipstick Clnc Urine Color (YELLOW) Urine Appearance (CLEAR) Urine pH (5-6) Ur Specific [place] (1.005-1.025) POC Urine Protein Conf (Negative) Urine Ketones (NEGATIVE) Urine Nitrite (NEGATIVE) Urine Bilirubin (NEGATIVE) Urine Urobilinogen (0-1) mg/dL Urine Leukocytes (NEGATIVE) Urine WBC (Auto) (0-5) /HPF Urine RBC (Auto) (0-2) /HPF U Hyaline Cast (Auto) (0-2) /LPF U Epithel Cells (Auto) (FEW) /HPF Urine Bacteria (Auto) (NEGATIVE) /HPF Urine RBC (0-5) Pernell/ul Ur Culture Indicated? Urine Glucose (NEGATIVE) mg/dL Theophylline (10-20) ug/mL Influenza Type A Ag (NEGATIVE) Influenza Type B Ag (NEGATIVE) RSV (PCR) (Negative) SARS-CoV-2 (PCR) (NEGATIVE) - Radiology Impressions Radiology Exams & Impressions: Radiology Procedures Category Date Time Status ABDOMEN AND PELVIS W CONTRAST [CT] Stat Exams 01/05/22 10:42 Completed CHEST 1 VIEW (PORTABLE) Stat Exams 01/05/22 11:22 Completed HEAD WITHOUT CONTRAST [CT] Stat Exams 01/05/22 11:[address]/ABDOMEN AND PELVIS W CONTRAST Indication: Right head injury following fall. Right lower quadrant pain. Blood thinner therapy. Multiple contiguous images obtained through the abdomen and pelvis using 80 cc Isovue 370 contrast. Comparison: None Lung bases demonstrates pulmonary emphysema and tiny right costophrenic angle calcified granuloma. Heart not enlarged. Noncontrasted stomach and bowel loops appear nonobstructed. Appendix not visualized. Scattered descending and sigmoid diverticulosis without diverticulitis. Both kidneys enhance and excrete with a few tiny bilateral renal cysts, largest left upper pole measuring 5 mm. Urinary bladder near empty with Mata balloon catheter in situ. Inferior right lobe liver demonstrates 5 mm cyst. Gallbladder demonstrates tiny stones/gravel in the dependent portion. No free fluid/air. Remaining liver, gallbladder, pancreas, spleen, adrenal glands, kidneys, ureters, and bladder are unremarkable. Mild scattered aortoiliac calcifications. No AAA or pathologic retroperitoneal lymphadenopathy. Osseous structures intact with osteopenia and moderate L3-S1 degenerative disc disease. No ventral inguinal hernias. Impression: 1. Pulmonary emphysema, colonic diverticulosis, tiny hepatic cyst, tiny gallstones/gravel, tiny bilateral renal cysts, chronic bony findings, and old granulomatous disease. 2. Remaining CT abdomen/pelvis with contrast exam is negative. - Other Procedures and Tests Respiratory Therapy 01/05/22 17:54 Oxygen Nasal Cannula 2 lpm Respiratory Therapy Assessment DAILY Assessment/Plan (1) Sepsis Current Visit: Yes Status: Acute Qualifiers: Sepsis type: Pneumococcus Sepsis acute organ dysfunction status: with acute organ dysfunction Severe sepsis acute organ dysfunction type: unspecified Severe sepsis shock status: with septic shock Qualified Code(s): A40.3 - Sepsis due to Streptococcus pneumoniae; R65.21 - Severe sepsis with septic shock (2) Non-ST elevation SC (NSTEMI) Current Visit: Yes Status: Acute Assessment & Plan: Chief Complaint Diagnosis Sepsis Allergies Allergy/AdvReac Type Severity Reaction Status Date / Time Penicillins Allergy Verified 01/05/22 10:50 strawberry Allergy Verified 01/05/22 10:50 watermelon Allergy Verified 01/05/22 10:50 Vital Signs (Last 24 hours) Temp Pulse Resp BP BP Pulse Ox 01/05/22 20:04 99 H 21 110/68 01/05/22 20:00 96.3 F 99 H 21 110/68 98 01/05/22 19:58 97.7 F 108 H 18 116/72 96 01/05/22 19:00 102 H 21 102/77 102/77 98 01/05/22 18:26 106 H 19 97 01/05/22 18:25 105 H 20 97 01/05/22 18:00 100 H 18 114/60 114/60 97 01/05/22 17:16 96.2 F 120 H 19 123/83 98 01/05/22 17:00 113 H 19 104/70 01/05/22 16:00 117 H 17 120/82 01/05/22 15:37 108 H 118/83 01/05/22 15:05 97.6 F 55 L 16 123/83 88 L 01/05/22 15:00 120 H 123/83 99 01/05/22 12:08 94 L 01/05/22 11:36 124 H 16 107/84 95 01/05/22 10:37 97.2 F 84 18 123/84 94 L Current Medications Generic Name Dose Route Start Last Admin Trade Name Freq PRN Reason Stop Dose Admin Hydrocodone Bitart/Acetaminophen 1 tablet 01/05/22 16:32 01/05/22 17:01 Hydrocodone/Acetamin 10-325 Mg Tablet PO 01/10/22 16:31 1 tablet Q6H PRN PRN Administration PAIN Albuterol Sulfate 2.5 mg 01/05/22 19:00 01/05/22 18:24 Albuterol Sulfate 2.5 Mg/3 Ml Neb IH 02/04/22 18:59 2.5 mg QIDRT VERA Administration Amiloride HCl 5 mg 01/05/22 17:00 01/05/22 17:12 Amiloride Hcl 5 Mg Tablet PO 02/04/22 16:59 5 mg 1400 VERA Administration Buspirone HCl 5 mg 01/05/22 22:00 Buspirone Hcl 5 Mg Tablet PO 02/04/22 21:59 BID VERA Calcium Carbonate 1 tab 01/06/22 10:00 Calcium Carbonate 500 Mg/Vitamin D 1 Tab Tablet PO 02/05/22 09:59 DAILY VERA Cyanocobalamin 500 mcg 01/06/22 10:00 Cyanocobalamin 500 Mcg Tablet PO 02/05/22 09:59 DAILY VERA Docusate Sodium 100 mg 01/06/22 10:00 Docusate Sodium 100 Mg Capsule PO 02/05/22 09:59 DAILY PENDING SALE TO [facility] Enoxaparin Sodium 80 mg 01/05/22 22:00 Enoxaparin Sodium 80 Mg/0.8 Ml Syringe SQ 02/04/22 21:59 BID VERA Famotidine 40 mg 01/06/22 10:00 Famotidine 20 Mg Tablet PO 02/05/22 09:59 DAILY VERA Finasteride 5 mg 01/06/22 10:00 Finasteride 5 Mg Tablet PO 02/05/22 09:59 DAILY VERA Sodium Chloride 1,000 mls @ 150 mls/hr 01/05/22 12:15 01/05/22 15:41 Sodium Chloride 0.9% 1000 Ml IV 02/04/22 12:14 150 mls/hr .Q6H40M VERA Administration Meropenem 1 g/ Sodium Chloride 100 mls @ 200 mls/hr 01/05/22 22:00 IV 01/08/22 21:59 Q8HT VERA Diltiazem HCl 100 mls @ 5 mls/hr 01/05/22 14:07 01/05/22 20:04 Cardizem Drip 100 Mg/100 Ml D5w IV 02/04/22 14:06 10 mg/hr .Q20H PRN 10 mls/hr HEART RATE/ A-FIB Titration Protocol 5 MG/HR Latanoprost 0 ml 01/05/22 22:00 Latanoprost 2.5 Ml Bottle OP 02/04/22 21:59 HS PENDING SALE TO [facility] Levothyroxine Sodium 50 mcg 01/06/22 10:00 Levothyroxine Sodium 50 Mcg Tablet PO 02/05/22 09:59 QAM PENDING SALE TO [facility] Magnesium Oxide 400 mg 01/06/22 10:00 Magnesium Oxide 400 Mg Tablet PO 02/05/22 09:59 DAILY PENDING SALE TO [facility] Metoprolol Tartrate 25 mg 01/05/22 22:00 Metoprolol Tartrate 25 Mg Tab PO 02/04/22 21:59 BID PENDING SALE TO [facility] Miscellaneous Information 1 each 01/05/22 17:45 Medication Intervention 1 Each Each 02/04/22 17:44 .RN TO CHECK VERA Montelukast Sodium 10 mg 01/06/22 10:00 Montelukast Sodium 10 Mg Tablet PO 02/05/22 09:59 DAILY VERA Nitroglycerin 0.4 mg 01/05/22 16:32 Nitroglycerin 0.4 Mg Tablet Bottle SL 02/04/22 16:31 Q5MIN PRN MR X 3 PRN CHEST PAIN Patient Own Medication 0 each 01/05/22 22:00 Patient Own Med Misc OP 02/04/22 21:59 BID VERA Patient Own Medication 0 each 01/05/22 22:00 Patient Own Med [facility] [place] OP 02/04/22 21:59 TID VERA Potassium Chloride 50 meq 01/05/22 17:00 01/05/22 20:25 Potassium Chloride 10 Meq Tablet PO 02/04/22 16:59 50 meq 1600,2000 VERA Administration Potassium Chloride 60 meq 01/06/22 08:00 Potassium Chloride 10 Meq Tablet PO 02/05/22 07:59 0800,1200 VERA Fluticasone/Salmeterol 2 puff 01/05/22 19:00 01/05/22 18:24 Fluticasone/Salmeterol 115/21 - 120 Puff Common Canister IH 02/04/22 18:59 2 puff BIDRT VERA Administration Simvastatin 50 mg 01/05/22 22:00 Simvastatin 10 Mg Tablet PO 02/04/22 21:59 HS PENDING SALE TO [facility] Tamsulosin HCl 0.4 mg 01/06/22 10:00 Tamsulosin Hcl 0.4 Mg Cap PO 02/05/22 09:59 DAILY PENDING SALE TO [facility] Zolpidem Tartrate 5 mg 01/05/22 22:00 Zolpidem Tartrate 5 Mg Tab PO 02/04/22 21:59 HS PENDING SALE TO [facility] Discontinued Medications Generic Name Dose Route Start Last Admin Trade Name Freq PRN Reason Stop Dose Admin Methylprednisolone Sodium 0 mg 01/05/22 11:50 01/05/22 11:53 Succinate 125 mg/ Sterile IV 01/05/22 11:51 125 mg Water 2 ml STAT ONE Administration Diltiazem HCl 10 mg 01/05/22 14:08 01/05/22 14:16 Diltiazem Hcl Iv 5 Mg/Ml Vial IV 01/05/22 14:09 10 mg STAT ONE Administration Diltiazem HCl Confirm 01/05/22 14:11 Diltiazem Hcl Iv 5 Mg/Ml Vial Administered 01/05/22 14:12 Dose 50 mg IV .STK-MED ONE Diphenhydramine HCl 50 mg 01/05/22 11:49 01/05/22 11:52 Diphenhydramine Hcl 50 Mg/Ml Vial IV 01/05/22 11:50 50 mg STAT ONE Administration Diphenhydramine HCl Confirm 01/05/22 11:51 Diphenhydramine Hcl 50 Mg/Ml Vial Administered 01/05/22 11:52 Dose 50 mg .ROUTE .STK-MED ONE Sodium Chloride 1,000 mls @ 999 mls/hr 01/05/22 10:41 01/05/22 13:50 Sodium Chloride 0.9% 1000 Ml IV 01/05/22 11:41 Infused .Q1H1M STA Infusion Sodium Chloride Confirm 01/05/22 11:03 Sodium Chloride 0.9% 1000 Ml Administered 01/05/22 11:04 Dose 1,000 mls @ ud .ROUTE .STK-MED ONE Meropenem 1 g/ Sodium Chloride 100 mls @ 200 mls/hr 01/05/22 11:59 01/05/22 13:20 IV 01/05/22 12:28 Not Given STAT ONE Sodium Chloride Confirm 01/05/22 12:07 Sodium Chloride 0.9% 100 Ml Bag Administered 01/05/22 12:08 Dose 100 mls @ ud .ROUTE .STK-MED ONE Meropenem 1 g/ Sodium Chloride 100 mls @ 200 mls/hr 01/05/22 12:45 01/05/22 13:12 IV 01/08/22 12:44 200 mls/hr Q8HT VERA Administration Meropenem Confirm 01/05/22 12:06 Meropenem 1 Gm Vial Administered 01/05/22 12:07 Dose 1 g IV .STK-MED ONE Methylprednisolone Sodium Succinate Confirm 01/05/22 11:51 Methylprednis Sod Succ 125 Mg/2 Ml Vial Administered 01/05/22 11:52 Dose 125 mg .ROUTE .STK-MED ONE Miscellaneous Information 1 each 01/05/22 17:45 Medication Intervention 1 Each Each 02/04/22 17:44 .RN TO CHECK PENDING SALE TO [facility] Miscellaneous Information 1 each 01/05/22 17:45 Medication Intervention 1 Each Each 02/04/22 17:44 .RN TO CHECK PENDING SALE TO [facility] Non-Formulary Medication 1 each 01/05/22 15:53 01/05/22 20:20 Pharmacy Dosing Request 01/05/22 15:54 1 each STAT ONE Administration Non-Formulary Medication 1 puff 01/05/22 22:00 Budesonide/Formoterol Fumarate [Symbicort 160-4.5 Mcg Inhaler] IH 02/04/22 21:59 BID VERA Sterile Water Confirm 01/05/22 11:51 Water For Injection,Sterile 10 Ml Vial Administered 01/05/22 11:52 Dose 10 ml IJ .STK-MED ONE Intake & Output (Last 24 hours) 01/03/22 01/04/22 01/05/22 01/06/22 11:59 11:59 11:59 11:59 Intake Total 996 Output Total 1400 Balance -404 Weight 84.1 kg 81.7 kg Microbiology Results (Last 24 hours) 01/05/22 11:03 Blood Blood Culture Gram Stain - Pending 01/05/22 11:03 Blood Blood Culture - Pending 01/05/22 10:55 Blood Blood Culture Gram Stain - Pending 01/05/22 10:55 Blood Blood Culture - Pending Laboratory Results (Last 24 hours) 01/05/22 01/05/22 01/05/22 17:05 13:30 12:59 WBC RBC Hgb Hct MCV MCH MCHC RDW Plt Count MPV Segmented Neutrophils Band Neutrophils Lymphocytes (Manual) Monocytes (Manual) Toxic Granulation Platelet Estimate RBC Morphology Anisocytosis Sodium Potassium Chloride Carbon Dioxide Anion Gap BUN Creatinine Estimated GFR Glucose Lactic Acid 3.3 H Calcium Total Bilirubin AST ALT Alkaline Phosphatase Troponin I 0.074 H* 0.032 Serum Total Protein Albumin Amylase Lipase Procalcitonin Urinalys Dipstick Clnc Urine Color Urine Appearance Urine pH Ur Specific [place] POC Urine Protein Conf Urine Ketones Urine Nitrite Urine Bilirubin Urine Urobilinogen Urine Leukocytes Urine WBC (Auto) Urine RBC (Auto) U Hyaline Cast (Auto) U Epithel Cells (Auto) Urine Bacteria (Auto) Urine RBC Ur Culture Indicated? Urine Glucose Theophylline Influenza Type A Ag Influenza Type B Ag RSV (PCR) SARS-CoV-2 (PCR) 01/05/22 01/05/22 01/05/22 12:15 11:28 11:03 WBC RBC Hgb Hct MCV MCH MCHC RDW Plt Count MPV Segmented Neutrophils Band Neutrophils Lymphocytes (Manual) Monocytes (Manual) Toxic Granulation Platelet Estimate RBC Morphology Anisocytosis Sodium Potassium Chloride Carbon Dioxide Anion Gap BUN Creatinine Estimated GFR Glucose Lactic Acid Calcium Total Bilirubin AST ALT Alkaline Phosphatase Troponin I Serum Total Protein Albumin Amylase Lipase Procalcitonin 0.256 H Urinalys Dipstick Clnc [facility] Urine Color LT.YELLOW Urine Appearance CLEAR Urine pH 7.0 Ur Specific [place] 1.015 POC Urine Protein Conf NEGATIVE Urine Ketones NEGATIVE Urine Nitrite NEGATIVE Urine Bilirubin NEGATIVE Urine Urobilinogen 0.2 Urine Leukocytes NEGATIVE Urine WBC (Auto) NONE Urine RBC (Auto) NONE U Hyaline Cast (Auto) 3-5 U Epithel Cells (Auto) NONE Urine Bacteria (Auto) NONE Urine RBC TRACE-INTACT Ur Culture Indicated? NO Urine Glucose NEGATIVE Theophylline Influenza Type A Ag NEGATIVE Influenza Type B Ag NEGATIVE RSV (PCR) NEGATIVE SARS-CoV-2 (PCR) NEGATIVE 01/05/22 01/05/22 01/05/22 11:03 11:03 11:03 WBC RBC Hgb Hct MCV MCH MCHC RDW Plt Count MPV Segmented Neutrophils Band Neutrophils Lymphocytes (Manual) Monocytes (Manual) Toxic Granulation Platelet Estimate RBC Morphology Anisocytosis Sodium 125 L Potassium 4.2 Chloride 89 L Carbon Dioxide 20 L Anion Gap 19.6 H BUN 32 H Creatinine 1.21 Estimated GFR > 60.0 Glucose 129 H Lactic Acid Calcium 9.7 Total Bilirubin 2.00 H AST 34 ALT 24 Alkaline Phosphatase 107 Troponin I 0.025 Serum Total Protein 8.3 H Albumin 4.7 Amylase 128 H Lipase 337 H Procalcitonin Urinalys Dipstick Clnc Urine Color Urine Appearance Urine pH Ur Specific [place] POC Urine Protein Conf Urine Ketones Urine Nitrite Urine Bilirubin Urine Urobilinogen Urine Leukocytes Urine WBC (Auto) Urine RBC (Auto) U Hyaline Cast (Auto) U Epithel Cells (Auto) Urine Bacteria (Auto) Urine RBC Ur Culture Indicated? Urine Glucose Theophylline 28.9 H* Influenza Type A Ag Influenza Type B Ag RSV (PCR) SARS-CoV-2 (PCR) 01/05/22 01/05/22 11:03 10:56 WBC 19.2 H RBC 5.69 H Hgb 18.0 Hct 49.7 MCV 87.3 MCH 31.6 MCHC 36.2 H RDW 16.8 H Plt Count 273 MPV 11.3 H Segmented Neutrophils 88 H Band Neutrophils 1 Lymphocytes (Manual) 9 L Monocytes (Manual) 2 Toxic Granulation 1+ Platelet Estimate NORMAL RBC Morphology ABNORMAL Anisocytosis 1+ Sodium Potassium Chloride Carbon Dioxide Anion Gap BUN Creatinine Estimated GFR Glucose Lactic Acid 3.6 H Calcium Total Bilirubin AST ALT Alkaline Phosphatase Troponin I Serum Total Protein Albumin Amylase Lipase Procalcitonin Urinalys Dipstick Clnc Urine Color Urine Appearance Urine pH Ur Specific [place] POC Urine Protein Conf Urine Ketones Urine Nitrite Urine Bilirubin Urine Urobilinogen Urine Leukocytes Urine WBC (Auto) Urine RBC (Auto) U Hyaline Cast (Auto) U Epithel Cells (Auto) Urine Bacteria (Auto) Urine RBC Ur Culture Indicated? Urine Glucose Theophylline Influenza Type A Ag Influenza Type B Ag RSV (PCR) SARS-CoV-2 (PCR) Orders (Last 24 hours) Category Date Time Status Up With Assistance ROUTINE Activity 01/05/22 12:10 Active Cath [Catheter-[place] Mata] STAT Care 01/05/22 12:32 Completed EKG-ER Only STAT Care 01/05/22 10:41 Completed IV Care Q1H Care 01/05/22 12:10 Active IV Insertion STAT Care 01/05/22 10:41 Completed Neuro Checks Q4H Care 01/05/22 12:[address] in Observation ROUTINE Care 01/05/22 12:10 Active Telemetry Q1H Care 01/05/22 12:10 Active Weight,Daily 0600 Care 01/05/22 12:10 Active Cardio-Pulmonary Rehab .as ordered Cons 01/05/22 16:09 Active Infection Control Consult ROUTINE Cons 01/05/22 17:47 Active 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 ROUTINE Cons 01/05/22 17:47 Active House Regular Diet Diet 01/05/22 Dinner Active Nutritional Admission Screen ONCE Diet 01/05/22 17:47 Active ABDOMEN AND PELVIS W CONTRAST [CT] Stat Exams 01/05/22 10:42 Completed CHEST 1 VIEW (PORTABLE) Stat Exams 01/05/22 11:22 Completed HEAD WITHOUT CONTRAST [CT] Stat Exams 01/05/22 11:57 Completed AMYLASE Stat Lab 01/05/22 11:03 Completed BLOOD CULTURE Stat Lab 01/05/22 11:03 Received CBC W DIFF AM.LAB Lab 01/06/22 04:00 Ordered CBC W DIFF Stat Lab 01/05/22 11:03 Completed CMP AM.LAB Lab 01/06/22 04:00 Ordered CMP Stat Lab 01/05/22 11:03 Completed COVID/FLU/RSV Panel Stat Lab 01/05/22 12:15 Completed LIPASE Stat Lab 01/05/22 11:03 Completed Lactic Acid AM.LAB Lab 01/06/22 04:00 Ordered Lactic Acid Stat Lab 01/05/22 10:56 Completed Lactic Acid Stat Lab 01/05/22 12:59 Completed Manual Differential NC Stat Lab 01/05/22 11:03 Completed PROCALCITONIN Stat Lab 01/05/22 11:03 Completed TROPONIN Q3H Lab 01/05/22 11:03 Completed TROPONIN Q3H Lab 01/05/22 13:30 Completed TROPONIN Q3H Lab 01/05/22 17:05 Completed TROPONIN Q3H Lab 01/05/22 20:40 Received TROPONIN Q3H Lab 01/05/22 22:45 Ordered Theophylline Stat Lab 01/05/22 11:03 Completed UA W/RFX CULTURE Stat Lab 01/05/22 11:28 Completed Albuterol 2.5 mg/3 ml Neb [Proventil 2.5 mg/3 ml Neb Med 01/05/22 19:00 Active ] 2.5 mg IH QIDRT Amiloride HCl Med 01/05/22 17:00 Active 5 mg PO 1400 Budesonide/Formoterol Fumarate [Symbicort 160-4.5 Mcg Med 01/05/22 22:00 Discontinued Inhaler] 1 puff IH BID Buspirone HCl 5 mg [Buspar 5 mg] Med 01/05/22 22:00 Active 5 mg PO BID Calcium Carb/Vitamin D 500 mg* [Calcium 500MG W/Vit D Med 01/06/22 10:00 Active Tablet] 1 tab PO DAILY Cyanocobalamin 500 Mcg [Vitamin B-12 500 MCG] Med 01/06/22 10:00 Active 500 mcg PO DAILY Diltiazem HCl 100 mg/100 ml [Cardizem Drip 100 mg/100 Med 01/05/22 14:07 Active ml D5w] 100 ml IV 5 mg/hr Diltiazem HCl 50 mg/10 ml [Cardizem IV 50 MG/10 ML Med 01/05/22 14:08 Discontinued *] 10 mg IV STAT ONE Diltiazem HCl 50 mg/10 ml [Cardizem IV 50 MG/10 ML Med 01/05/22 14:11 Discontinued *] 50 mg IV .STK-MED ONE Diphenhydramine HCl 50 mg/ml [Benadryl 50 mg/ml] Med 01/05/22 11:51 Discontinued 50 mg .ROUTE .STK-MED ONE Diphenhydramine HCl 50 mg/ml [Benadryl 50 mg/ml] Med 01/05/22 11:49 Discontinued 50 mg IV STAT ONE Docusate Sodium 100 mg [Docusate Sodium 100 MG] Med 01/06/22 10:00 Act beatrice 100 mg PO DAILY Enoxaparin Sodium [Enoxaparin Sodium] Med 01/05/22 22:00 Active 80 mg SQ BID Famotidine 20 mg [Pepcid 20 MG] Med 01/06/22 10:00 Active 40 mg PO DAILY Finasteride 5 mg [Proscar 5 MG] Med 01/06/22 10:00 Active 5 mg PO DAILY Fluticasone/Salmeterol [Advair Hfa 115/21 Common Med 01/05/22 19:00 Active canister*] 2 puff IH BIDRT Hydrocodone/Acetaminophen [Hydrocodone-Acetamin 10-325 Med 01/05/22 16:32 Active mg] 1 tablet PO Q6H PRN PRN Latanoprost [Xalatan] Med 01/05/22 22:00 Active See Dose Instructions OP HS Levothyroxine Sodium 50 Mcg [Synthroid 50 Mcg] Med 01/06/22 10:00 Active 50 mcg PO QAM Magnesium Oxide 400 mg [Mag-Ox 400] Med 01/06/22 10:00 Active 400 mg PO DAILY Medication Intervention Med 01/05/22 17:45 Active 1 each MC .RN TO CHECK Medication Intervention Med 01/05/22 17:45 Discontinued 1 each MC .RN TO CHECK Medication Intervention Med 01/05/22 17:45 Discontinued 1 each MC .RN TO CHECK Meropenem [Merrem 1 GM] Med 01/05/22 12:06 Discontinued 1 g IV .STK-MED ONE Meropenem [Merrem 1 GM] 1 g Med 01/05/22 12:45 Discontinued NaCl 0.9% 100 ml Mini-Bag Plus [Sodium Chloride 100ML MINI-BAG PLUS] 100 ml IV Q8HT Meropenem [Merrem 1 GM] 1 g Med 01/05/22 22:00 Active NaCl 0.9% 100 ml Mini-Bag Plus [Sodium Chloride 100ML MINI-BAG PLUS] 100 ml IV Q8HT Meropenem [Merrem 1 GM] 1 g Med 01/05/22 11:59 Discontinued NaCl 0.9% 100 ml Mini-Bag Plus [Sodium Chloride 100ML MINI-BAG PLUS] 100 ml IV STAT Methylprednis Sod Succ 125 mg* [solu-MEDROL] Med 01/05/22 11:51 Discontinued 125 mg .ROUTE .STK-MED ONE Methylprednis Sod Succ 125 mg* [solu-MEDROL] 125 mg Med 01/05/22 11:50 Discontinued Water For Injection,Sterile [Sterile H2O 10 ml] 2 ml IV STAT Metoprolol Tartrate 25 mg [Lopressor 25MG Tab] Med 01/05/22 22:00 Active 25 mg PO BID Montelukast Sodium 10 mg [Singulair 10 MG] Med 01/06/22 10:00 Active 10 mg PO DAILY NaCl 0.9% 1000 ml [Sodium Chloride 0.9% 1000 ML] 1,000 Med 01/05/22 11:03 D iscontinued ml .ROUTE UD NaCl 0.9% 1000 ml [Sodium Chloride 0.9% 1000 ML] 1,000 Med 01/05/22 12:15 Active ml IV 150 mls/hr NaCl 0.9% 1000 ml [Sodium Chloride 0.9% 1000 ML] 1,000 Med 01/05/22 10:41 Discontinued ml IV 999 mls/hr NaCl 0.9% 100Ml [Sodium Chloride 0.9% 100 ML BAG] 100 Med 01/05/22 12:07 Discontinued ml .ROUTE UD Nitroglycerin 0.4 mg Tablet [Nitrostat 0.4 MG Tablet Med 01/05/22 16:32 Active ] 0.4 mg SL Q5MIN PRN MR X 3 PRN Patient Own Med [Patient Own Medication] Med 01/05/22 22:00 Active See Dose Instructions OP BID Patient Own Med [Patient Own Medication] Med 01/05/22 22:00 Active See Dose Instructions OP TID Pharmacy Dosing Request Med 01/05/22 15:53 Discontinued 1 each MC STAT ONE Potassium Chloride 10 Meq Tab* [Klor Con 10 MEQ] Med 01/05/22 17:00 Active 50 meq PO 1600,1999 Potassium Chloride 10 Meq Tab* [Klor Con 10 MEQ] Med 01/06/22 08:00 Active 60 meq PO 0800,1200 Simvastatin 10 mg [Zocor 10MG] Med 01/05/22 22:00 Active 50 mg PO HS Tamsulosin HCl 0.4 mg [Flomax 0.4 MG] Med 01/06/22 10:00 Active 0.4 mg PO DAILY Water For Injection,Sterile [Sterile H2O 10 ml] Med 01/05/22 11:51 Discontinued 10 ml IJ .STK-MED ONE Zolpidem Tartrate 5 mg [Ambien 5 MG Tablet] Med 01/05/22 22:00 Active 5 mg PO HS OT Screen per Nursing Assess ONCE OT 01/05/22 17:47 Active PT Screen per Nursing Assess ONCE PT 01/05/22 17:47 Active Oxygen Nasal Cannula 2 lpm RT 01/05/22 17:54 Active Pulse Oximetry CONTINUOUS RT 01/05/22 12:13 Active RT Screen per Nursing Assess ONCE RT 01/05/22 17:47 Completed Respiratory Therapy Assessment DAILY RT 01/05/22 17:54 Active Transfer Order Routine Transfer 01/05/22 Completed Code(s): I21.4 - NON-ST ELEVATION (NSTEMI) MYOCARDIAL INFARCTION (3) Dehydration Current Visit: Yes Status: Acute Code(s): E86.0 - DEHYDRATION (4) Hyponatremia Current Visit: Yes Status: Acute Code(s): E87.1 - HYPO-OSMOLALITY AND HYPONATREMIA (5) Theophylline toxicity Current Visit: Yes Status: Acute Code(s): R89.2 - ABN LEV DRUG/MEDS/BIOL SUBST IN SPECIMENS FROM OTH ORG/TISS; T48.6X1A - POISONING BY ANTIASTHMATICS, ACCIDENTAL, INIT
[2022-01-05] MEDS: Merrem 1 GM 1 G in Sodium Chloride 100ML MINI-BAG PLUS 100 ML IV SCH (21:04)
[2022-01-05] MEDS: ENOXAPARIN SODIUM SQ SCH (21:04)
[2022-01-05] MEDS: BUSPAR 5 MG PO SCH (21:04)
[2022-01-05] MEDS: Lopressor 25MG Tab PO SCH (21:04)
[2022-01-05] MEDS: Xalatan OP SCH (21:04)
[2022-01-05] MEDS: PATIENT OWN MEDICATION OP SCH ×2 (21:05)
[2022-01-05] MEDS ORDERED: [UNRECOGNIZED DRUG - OTHER] OP SCH (22:00)
[2022-01-05] MEDS ORDERED: LATANOPROST OP SCH (22:00)
[2022-01-05] MEDS ORDERED: BRIMONIDINE OP SCH (22:00)
[2022-01-05] MEDS ORDERED: NON-FORMULARY ITEM (Budesonide/Formoterol Fumarate [Symbicort 160-4.5 Mcg Inhaler] 10.2 GM IH SCH (22:00)
[2022-01-05] MEDS ORDERED: [UNRECOGNIZED DRUG - OTHER] OP SCH (22:00)
[2022-01-05] MEDS ORDERED: BUSPIRONE HCL 10 MG PO SCH (22:00)
[2022-01-05] MEDS ORDERED: NETARSUDIL MESYLAT OP SCH (22:00)
[2022-01-05] MEDS ORDERED: BRIMONIDINE TARTRATE OP SCH (22:00)
[2022-01-05] MEDS ORDERED: DORZOLAMIDE OP SCH (22:00)
[2022-01-05] MEDS ORDERED: NON-FORMULARY ITEM (Dorzolamide Hcl/Pf [Dorzolamide 2% Eye Drop] 10 ML Drops) OP SCH (22:00)
[2022-01-05] MEDS ORDERED: Zocor 10MG PO SCH (22:00)
[2022-01-05] MEDS ORDERED: NON-FORMULARY ITEM (Lovastatin [Lovastatin] 10 MG Tablet) PO SCH (22:00)
[2022-01-05] MEDS: Ambien 5 MG Tablet PO SCH (22:30)
[2022-01-06 04:57] LABS: Absolute Neutrophil Ct (ANC) 14.25 (1.4-6.9); Basophil (Absolute #) 0.04 (0-0.4); Eosinophil (Absolute #) 0 (0-0.5); Hematocrit 39.8 % (42-50); Lymphocytes % 2.6 % (24.0-44.0); Mean Corpuscular Hemoglobin 32.1 pg (26-32); Mean Corpuscular Hgb Concent. 35.7 g/dl (32-36); Mean Platelet Volume 11.1 fl (7.5-11.0); Monocyte (Absolute #) 0.53 (0.0-1.3); Monocytes % 3.5 % (0.0-12.0); Neutrophil % 93.6 % (36.0-66.0); Platelet Count 219 K/mm3 (150-450); Red Blood Count 4.42 M/mm3 (4.1-5.6); Red Cell Distribution Width 16.4 % (11.5-14.0); White Blood Count 15.2 K/mm3 (4.0-10.5)
[2022-01-06] MEDS: Sodium Chloride 0.9% 1000 ML 1,000 ML IV SCH ×3 (05:04→14:10)
[2022-01-06 05:12] LABS: Hemoglobin 14.2 gm/dl (12.5-18.0)
[2022-01-06 05:20] LABS: ALBUMIN 3.3 g/dL (3.5-5.0); ALKALINE PHOSPHATASE 74 U/L (38-126); ANION GAP 13.1 MEQ/L (5-15); BLOOD UREA NITROGEN 25 mg/dL (9-20); CHLORIDE 90 mmol/L (98-107); Calcium 8.4 mg/dL (8.4-10.2); Carbon Dioxide 25 mmol/L (22-30); Creatinine 1 1.08 mg/dL (0.66-1.25); EST GLOMERULAR FILTRATION RATE > 60.0 ML/MIN; Glucose 114 mg/dL (74-106); SGOT/AST 29 U/L (17-59); SGPT/ALT 19 U/L (0-50); SODIUM 123 mmol/L (137-145)
[2022-01-06 05:27] LABS: Potassium 5.2 mmol/L (3.5-5.1)
[2022-01-06 05:49] LABS: Slide Review 1 YES
[2022-01-06] MEDS: Merrem 1 GM 1 G in Sodium Chloride 100ML MINI-BAG PLUS 100 ML IV SCH ×3 (05:59→21:41)
[2022-01-06] MEDS: PROVENTIL 2.5 MG/3 ML NEB IH SCH ×4 (06:58→19:06)
[2022-01-06] MEDS: Advair Hfa 115/21 Common canister IH SCH ×2 (07:08→19:08)
[2022-01-06] MEDS: Klor Con 10 MEQ PO SCH ×4 (07:43→21:40)
--- NOTE | 2022-01-06 08:17 | PCM.NOTE ---
Date and Time: 01/06/22814 Subjective Assessment: last 12 hours events noted. labs reviewed. no significant change in patient condition - Review of Systems Constitutional: Lethargy, Malaise, Weakness, No Fever, No Chills Eyes: No Symptoms Ears, Nose, & Throat: No Symptoms Respiratory: No Cough, No Short Of Breath Cardiac: No Chest Pain, No Edema, No Syncope Abdominal/Gastrointestinal: No Abdominal Pain, No Nausea, No Vomiting, No Diarrhea Genitourinary Symptoms: No Dysuria Musculoskeletal: No Back Pain, No Neck Pain Skin: No Rash Neurological: No Dizziness, No Focal Weakness, No Sensory Changes Psychological: No Symptoms Endocrine: No Symptoms Hematologic/Lymphatic: No Symptoms Immunological/Allergic: No Symptoms Objective Exam General Appearance: moderate distress, alert Neurologic Exam: alert, oriented x 3, cooperative, normal mood/affect, sensation nml, No motor deficits Skin Exam: normal color, warm, dry Eye Exam: PERRL, EOMI, eyes nml inspection Ears, Nose, Throat Exam: normal ENT inspection, pharynx normal, moist mucous membranes Neck Exam: normal inspection, non-tender, supple, full range of motion Respiratory Exam: normal breath sounds, lungs clear, No respiratory distress Cardiovascular Exam: regular rate/rhythm, normal heart sounds Gastrointestinal/Abdomen Exam: soft, No tenderness, No mass Extremity Exam: normal inspection, normal range of motion Back Exam: normal inspection, normal range of motion, No CVA tenderness, No vertebral tenderness Male Genitalia Exam: deferred Rectal Exam: deferred OBJECTIVE DATA Vital Signs: Vital Signs - 24 hr Temp Pulse Resp BP BP Pulse Ox 01/06/22 07:53 73 01/06/22 07:45 97.5 F 73 15 117/64 98 01/06/22 07:04 98 01/06/22 07:01 72 18 98 01/06/22 04:00 97.8 F 66 20 101/54 100 01/06/22 03:00 62 20 94/57 98 01/06/22 02:00 62 17 89/48 96 01/06/22 01:00 63 18 90/54 95 01/06/22 00:01 67 01/06/22 00:00 97.3 F 67 22 81/53 95 01/05/22 23:49 67 21 77/58 01/05/22 23:03 74 14 93/64 01/05/22 23:00 74 14 93/64 97 01/05/22 22:00 92 H 20 114/61 96 01/05/22 21:00 101 H 22 100/64 96 01/05/22 20:04 99 H 21 110/68 01/05/22 20:00 96.3 F 99 H 21 110/68 98 01/05/22 19:58 97.7 F 108 H 18 116/72 96 01/05/22 19:00 102 H 21 102/77 102/77 98 01/05/22 18:26 106 H 19 97 01/05/22 18:25 105 H 20 97 01/05/22 18:00 100 H 18 114/60 114/60 97 01/05/22 17:16 96.2 F 120 H 19 123/83 98 01/05/22 17:00 113 H 19 104/70 01/05/22 16:00 117 H 17 120/82 01/05/22 15:37 108 H 118/83 01/05/22 15:05 97.6 F 55 L 16 123/83 88 L 01/05/22 15:00 120 H 123/83 99 01/05/22 12:08 94 L 01/05/22 11:36 124 H 16 107/84 95 01/05/22 10:37 97.2 F 84 18 123/84 94 L Pain Assessment - Last Documented Pain Intensity 0 Pain Scale Used 0-10 Pain Scale Intake and Output: Intake & Output 01/03/22 01/04/22 01/05/22 01/06/22 11:59 11:59 11:59 11:59 Intake Total 2644 Output Total 2075 Balance 569 Weight 84.1 kg 85.9 kg Lab Results: Lab Results-Last 24 Hours 01/05/22 01/05/22 01/05/22 Range/Units 10:56 11:03 11:03 WBC 19.2 H (4.0-10.5) K/mm3 RBC 5.69 H (4.1-5.6) M/mm3 Hgb 18.0 (12.5-18.0) gm/dl Hct 49.7 (42-50) % MCV 87.3 (78-100) fl MCH 31.6 (26-32) pg MCHC 36.2 H (32-36) g/dl RDW 16.8 H (11.5-14.0) % Plt Count 273 (150-450) K/mm3 MPV 11.3 H (7.5-11.0) fl Gran % (36.0-66.0) % Eos # (Auto) (0-0.5) Absolute Lymphs (auto) (1.0-4.6) Absolute Monos (auto) (0.0-1.3) Lymphocytes % (24.0-44.0) % Monocytes % (0.0-12.0) % Eosinophils % (0.00-5.0) % Basophils % (0.0-0.4) % Absolute Granulocytes (1.4-6.9) Segmented Neutrophils 88 H (36.-66.) % Band Neutrophils 1 (0.0-2.0) % Lymphocytes (Manual) 9 L (24-44) % Monocytes (Manual) 2 (0.0-12.0) % Basophils # (0-0.4) Toxic Granulation 1+ Platelet Estimate NORMAL (NORMAL) RBC Morphology ABNORMAL Anisocytosis 1+ Sodium 125 L (137-145) mmol/L Potassium 4.2 (3.5-5.1) mmol/L Chloride 89 L (98-107) mmol/L Carbon Dioxide 20 L (22-30) mmol/L Anion Gap 19.6 H (5-15) MEQ/L BUN 32 H (9-20) mg/dL Creatinine 1.21 (0.66-1.25) mg/dL Estimated GFR > 60.0 ML/MIN Glucose 129 H (74-106) mg/dL Lactic Acid 3.6 H (0.4-2.0) Calcium 9.7 (8.4-10.2) mg/dL Total Bilirubin 2.00 H (0.2-1.3) mg/dL AST 34 (17-59) U/L ALT 24 (0-50) U/L Alkaline Phosphatase 107 (38-126) U/L Troponin I (0.000-0.034) ng/mL Serum Total Protein 8.3 H (6.3-8.2) g/dL Albumin 4.7 (3.5-5.0) g/dL Amylase 128 H (30-110) U/L Lipase 337 H (23-300) U/L Procalcitonin (0.030-0.080) ng/mL Urinalys Dipstick Clnc Urine Color (YELLOW) Urine Appearance (CLEAR) Urine pH (5-6) Ur Specific [place] (1.005-1.025) POC Urine Protein Conf (Negative) Urine Ketones (NEGATIVE) Urine Nitrite (NEGATIVE) Urine Bilirubin (NEGATIVE) Urine Urobilinogen (0-1) mg/dL Urine Leukocytes (NEGATIVE) Urine WBC (Auto) (0-5) /HPF Urine RBC (Auto) (0-2) /HPF U Hyaline Cast (Auto) (0-2) /LPF U Epithel Cells (Auto) (FEW) /HPF Urine Bacteria (Auto) (NEGATIVE) /HPF Urine RBC (0-5) Pernell/ul Ur Culture Indicated? Urine Glucose (NEGATIVE) mg/dL Theophylline (10-20) ug/mL Influenza Type A Ag (NEGATIVE) Influenza Type B Ag (NEGATIVE) RSV (PCR) (Negative) SARS-CoV-2 (PCR) (NEGATIVE) Slides for Path Review 01/05/22 01/05/22 01/05/22 Range/Units 11:03 11:03 11:03 WBC (4.0-10.5) K/mm3 RBC (4.1-5.6) M/mm3 Hgb (12.5-18.0) gm/dl Hct (42-50) % MCV (78-100) fl MCH (26-32) pg MCHC (32-36) g/dl RDW (11.5-14.0) % Plt Count (150-450) K/mm3 MPV (7.5-11.0) fl Gran % (36.0-66.0) % Eos # (Auto) (0-0.5) Absolute Lymphs (auto) (1.0-4.6) Absolute Monos (auto) (0.0-1.3) Lymphocytes % (24.0-44.0) % Monocytes % (0.0-12.0) % Eosinophils % (0.00-5.0) % Basophils % (0.0-0.4) % Absolute Granulocytes (1.4-6.9) Segmented Neutrophils (36.-66.) % Band Neutrophils (0.0-2.0) % Lymphocytes (Manual) (24-44) % Monocytes (Manual) (0.0-12.0) % Basophils # (0-0.4) Toxic Granulation Platelet Estimate (NORMAL) RBC Morphology Anisocytosis Sodium (137-145) mmol/L Potassium (3.5-5.1) mmol/L Chloride (98-107) mmol/L Carbon Dioxide (22-30) mmol/L Anion Gap (5-15) MEQ/L BUN (9-20) mg/dL Creatinine (0.66-1.25) mg/dL Estimated GFR ML/MIN Glucose (74-106) mg/dL Lactic Acid (0.4-2.0) Calcium (8.4-10.2) mg/dL Total Bilirubin (0.2-1.3) mg/dL AST (17-59) U/L ALT (0-50) U/L Alkaline Phosphatase (38-126) U/L Troponin I 0.025 (0.000-0.034) ng/mL Serum Total Protein (6.3-8.2) g/dL Albumin (3.5-5.0) g/dL Amylase (30-110) U/L Lipase (23-300) U/L Procalcitonin 0.256 H (0.030-0.080) ng/mL Urinalys Dipstick Clnc Urine Color (YELLOW) Urine Appearance (CLEAR) Urine pH (5-6) Ur Specific [place] (1.005-1.025) POC Urine Protein Conf (Negative) Urine Ketones (NEGATIVE) Urine Nitrite (NEGATIVE) Urine Bilirubin (NEGATIVE) Urine Urobilinogen (0-1) mg/dL Urine Leukocytes (NEGATIVE) Urine WBC (Auto) (0-5) /HPF Urine RBC (Auto) (0-2) /HPF U Hyaline Cast (Auto) (0-2) /LPF U Epithel Cells (Auto) (FEW) /HPF Urine Bacteria (Auto) (NEGATIVE) /HPF Urine RBC (0-5) Pernell/ul Ur Culture Indicated? Urine Glucose (NEGATIVE) mg/dL Theophylline 28.9 H* (10-20) ug/mL Influenza Type A Ag (NEGATIVE) Influenza Type B Ag (NEGATIVE) RSV (PCR) (Negative) SARS-CoV-2 (PCR) (NEGATIVE) Slides for Path Review 01/05/22 01/05/22 01/05/22 Range/Units 11:28 12:15 12:59 WBC (4.0-10.5) K/mm3 RBC (4.1-5.6) M/mm3 Hgb (12.5-18.0) gm/dl Hct (42-50) % MCV (78-100) fl MCH (26-32) pg MCHC (32-36) g/dl RDW (11.5-14.0) % Plt Count (150-450) K/mm3 MPV (7.5-11.0) fl Gran % (36.0-66.0) % Eos # (Auto) (0-0.5) Absolute Lymphs (auto) (1.0-4.6) Absolute Monos (auto) (0.0-1.3) Lymphocytes % (24.0-44.0) % Monocytes % (0.0-12.0) % Eosinophils % (0.00-5.0) % Basophils % (0.0-0.4) % Absolute Granulocytes (1.4-6.9) Segmented Neutrophils (36.-66.) % Band Neutrophils (0.0-2.0) % Lymphocytes (Manual) (24-44) % Monocytes (Manual) (0.0-12.0) % Basophils # (0-0.4) Toxic Granulation Platelet Estimate (NORMAL) RBC Morphology Anisocytosis Sodium (137-145) mmol/L Potassium (3.5-5.1) mmol/L Chloride (98-107) mmol/L Carbon Dioxide (22-30) mmol/L Anion Gap (5-15) MEQ/L BUN (9-20) mg/dL Creatinine (0.66-1.25) mg/dL Estimated GFR ML/MIN Glucose (74-106) mg/dL Lactic Acid 3.3 H (0.4-2.0) Calcium (8.4-10.2) mg/dL Total Bilirubin (0.2-1.3) mg/dL AST (17-59) U/L ALT (0-50) U/L Alkaline Phosphatase (38-126) U/L Troponin I (0.000-0.034) ng/mL Serum Total Protein (6.3-8.2) g/dL Albumin (3.5-5.0) g/dL Amylase (30-110) U/L Lipase (23-300) U/L Procalcitonin (0.030-0.080) ng/mL Urinalys Dipstick Clnc MAIN LAB Urine Color LT.YELLOW (YELLOW) Urine Appearance CLEAR (CLEAR) Urine pH 7.0 (5-6) Ur Specific [place] 1.015 (1.005-1.025) POC Urine Protein Conf NEGATIVE (Negative) Urine Ketones NEGATIVE (NEGATIVE) Urine Nitrite NEGATIVE (NEGATIVE) Urine Bilirubin NEGATIVE (NEGATIVE) Urine Urobilinogen 0.2 (0-1) mg/dL Urine Leukocytes NEGATIVE (NEGATIVE) Urine WBC (Auto) NONE (0-5) /HPF Urine RBC (Auto) NONE (0-2) /HPF U Hyaline Cast (Auto) 3-5 (0-2) /LPF U Epithel Cells (Auto) NONE (FEW) /HPF Urine Bacteria (Auto) NONE (NEGATIVE) /HPF Urine RBC TRACE-INTACT (0-5) Pernell/ul Ur Culture Indicated? NO Urine Glucose NEGATIVE (NEGATIVE) mg/dL Theophylline (10-20) ug/mL Influenza Type A Ag NEGATIVE (NEGATIVE) Influenza Type B Ag NEGATIVE (NEGATIVE) RSV (PCR) NEGATIVE (Negative) SARS-CoV-2 (PCR) NEGATIVE (NEGATIVE) Slides for Path Review 01/05/22 01/05/22 01/05/22 Range/Units 13:30 17:05 20:40 WBC (4.0-10.5) K/mm3 RBC (4.1-5.6) M/mm3 Hgb (12.5-18.0) gm/dl Hct (42-50) % MCV (78-100) fl MCH (26-32) pg MCHC (32-36) g/dl RDW (11.5-14.0) % Plt Count (150-450) K/mm3 MPV (7.5-11.0) fl Gran % (36.0-66.0) % Eos # (Auto) (0-0.5) Absolute Lymphs (auto) (1.0-4.6) Absolute Monos (auto) (0.0-1.3) Lymphocytes % (24.0-44.0) % Monocytes % (0.0-12.0) % Eosinophils % (0.00-5.0) % Basophils % (0.0-0.4) % Absolute Granulocytes (1.4-6.9) Segmented Neutrophils (36.-66.) % Band Neutrophils (0.0-2.0) % Lymphocytes (Manual) (24-44) % Monocytes (Manual) (0.0-12.0) % Basophils # (0-0.4) Toxic Granulation Platelet Estimate (NORMAL) RBC Morphology Anisocytosis Sodium (137-145) mmol/L Potassium (3.5-5.1) mmol/L Chloride (98-107) mmol/L Carbon Dioxide (22-30) mmol/L Anion Gap (5-15) MEQ/L BUN (9-20) mg/dL Creatinine (0.66-1.25) mg/dL Estimated GFR ML/MIN Glucose (74-106) mg/dL Lactic Acid (0.4-2.0) Calcium (8.4-10.2) mg/dL Total Bilirubin (0.2-1.3) mg/dL AST (17-59) U/L ALT (0-50) U/L Alkaline Phosphatase (38-126) U/L Troponin I 0.032 0.074 H* 0.088 H* (0.000-0.034) ng/mL Serum Total Protein (6.3-8.2) g/dL Albumin (3.5-5.0) g/dL Amylase (30-110) U/L Lipase (23-300) U/L Procalcitonin (0.030-0.080) ng/mL Urinalys Dipstick Clnc Urine Color (YELLOW) Urine Appearance (CLEAR) Urine pH (5-6) Ur Specific [place] (1.005-1.025) POC Urine Protein Conf (Negative) Urine Ketones (NEGATIVE) Urine Nitrite (NEGATIVE) Urine Bilirubin (NEGATIVE) Urine Urobilinogen (0-1) mg/dL Urine Leukocytes (NEGATIVE) Urine WBC (Auto) (0-5) /HPF Urine RBC (Auto) (0-2) /HPF U Hyaline Cast (Auto) (0-2) /LPF U Epithel Cells (Auto) (FEW) /HPF Urine Bacteria (Auto) (NEGATIVE) /HPF Urine RBC (0-5) Pernell/ul Ur Culture Indicated? Urine Glucose (NEGATIVE) mg/dL Theophylline (10-20) ug/mL Influenza Type A Ag (NEGATIVE) Influenza Type B Ag (NEGATIVE) RSV (PCR) (Negative) SARS-CoV-2 (PCR) (NEGATIVE) Slides for Path Review 01/05/22 01/06/22 01/06/22 Range/Units 23:05 04:00 04:05 WBC 15.2 H (4.0-10.5) K/mm3 RBC 4.42 (4.1-5.6) M/mm3 Hgb 14.2 D (12.5-18.0) gm/dl Hct 39.8 L (42-50) % MCV 90.0 (78-100) fl MCH 32.1 H (26-32) pg MCHC 35.7 (32-36) g/dl RDW 16.4 H (11.5-14.0) % Plt Count 219 (150-450) K/mm3 MPV 11.1 H (7.5-11.0) fl Gran % 93.6 H (36.0-66.0) % Eos # (Auto) 0 (0-0.5) Absolute Lymphs (auto) 0.40 L (1.0-4.6) Absolute Monos (auto) 0.53 (0.0-1.3) Lymphocytes % 2.6 L (24.0-44.0) % Monocytes % 3.5 (0.0-12.0) % Eosinophils % 0.0 (0.00-5.0) % Basophils % 0.3 (0.0-0.4) % Absolute Granulocytes 14.25 H (1.4-6.9) Segmented Neutrophils (36.-66.) % Band Neutrophils (0.0-2.0) % Lymphocytes (Manual) (24-44) % Monocytes (Manual) (0.0-12.0) % Basophils # 0.04 (0-0.4) Toxic Granulation Platelet Estimate (NORMAL) RBC Morphology Anisocytosis Sodium 123 L (137-145) mmol/L Potassium 5.2 H D (3.5-5.1) mmol/L Chloride 90 L (98-107) mmol/L Carbon Dioxide 25 (22-30) mmol/L Anion Gap 13.1 (5-15) MEQ/L BUN 25 H (9-20) mg/dL Creatinine 1.08 (0.66-1.25) mg/dL Estimated GFR > 60.0 ML/MIN Glucose 114 H (74-106) mg/dL Lactic Acid (0.4-2.0) Calcium 8.4 (8.4-10.2) mg/dL Total Bilirubin 1.60 H (0.2-1.3) mg/dL AST 29 (17-59) U/L ALT 19 (0-50) U/L Alkaline Phosphatase 74 (38-126) U/L Troponin I 0.078 H* (0.000-0.034) ng/mL Serum Total Protein 6.0 L (6.3-8.2) g/dL Albumin 3.3 L (3.5-5.0) g/dL Amylase (30-110) U/L Lipase (23-300) U/L Procalcitonin (0.030-0.080) ng/mL Urinalys Dipstick Clnc Urine Color (YELLOW) Urine Appearance (CLEAR) Urine pH (5-6) Ur Specific [place] (1.005-1.025) POC Urine Protein Conf (Negative) Urine Ketones (NEGATIVE) Urine Nitrite (NEGATIVE) Urine Bilirubin (NEGATIVE) Urine Urobilinogen (0-1) mg/dL Urine Leukocytes (NEGATIVE) Urine WBC (Auto) (0-5) /HPF Urine RBC (Auto) (0-2) /HPF U Hyaline Cast (Auto) (0-2) /LPF U Epithel Cells (Auto) (FEW) /HPF Urine Bacteria (Auto) (NEGATIVE) /HPF Urine RBC (0-5) Pernell/ul Ur Culture Indicated? Urine Glucose (NEGATIVE) mg/dL Theophylline (10-20) ug/mL Influenza Type A Ag (NEGATIVE) Influenza Type B Ag (NEGATIVE) RSV (PCR) (Negative) SARS-CoV-2 (PCR) (NEGATIVE) Slides for Path Review YES 01/06/22 Range/Units 05:03 WBC (4.0-10.5) K/mm3 RBC (4.1-5.6) M/mm3 Hgb (12.5-18.0) gm/dl Hct (42-50) % MCV (78-100) fl MCH (26-32) pg MCHC (32-36) g/dl RDW (11.5-14.0) % Plt Count (150-450) K/mm3 MPV (7.5-11.0) fl Gran % (36.0-66.0) % Eos # (Auto) (0-0.5) Absolute Lymphs (auto) (1.0-4.6) Absolute Monos (auto) (0.0-1.3) Lymphocytes % (24.0-44.0) % Monocytes % (0.0-12.0) % Eosinophils % (0.00-5.0) % Basophils % (0.0-0.4) % Absolute Granulocytes (1.4-6.9) Segmented Neutrophils (36.-66.) % Band Neutrophils (0.0-2.0) % Lymphocytes (Manual) (24-44) % Monocytes (Manual) (0.0-12.0) % Basophils # (0-0.4) Toxic Granulation Platelet Estimate (NORMAL) RBC Morphology Anisocytosis Sodium (137-145) mmol/L Potassium (3.5-5.1) mmol/L Chloride (98-107) mmol/L Carbon Dioxide (22-30) mmol/L Anion Gap (5-15) MEQ/L BUN (9-20) mg/dL Creatinine (0.66-1.25) mg/dL Estimated GFR ML/MIN Glucose (74-106) mg/dL Lactic Acid 2.9 H (0.4-2.0) Calcium (8.4-10.2) mg/dL Total Bilirubin (0.2-1.3) mg/dL AST (17-59) U/L ALT (0-50) U/L Alkaline Phosphatase (38-126) U/L Troponin I (0.000-0.034) ng/mL Serum Total Protein (6.3-8.2) g/dL Albumin (3.5-5.0) g/dL Amylase (30-110) U/L Lipase (23-300) U/L Procalcitonin (0.030-0.080) ng/mL Urinalys Dipstick Clnc Urine Color (YELLOW) Urine Appearance (CLEAR) Urine pH (5-6) Ur Specific [place] (1.005-1.025) POC Urine Protein Conf (Negative) Urine Ketones (NEGATIVE) Urine Nitrite (NEGATIVE) Urine Bilirubin (NEGATIVE) Urine Urobilinogen (0-1) mg/dL Urine Leukocytes (NEGATIVE) Urine WBC (Auto) (0-5) /HPF Urine RBC (Auto) (0-2) /HPF U Hyaline Cast (Auto) (0-2) /LPF U Epithel Cells (Auto) (FEW) /HPF Urine Bacteria (Auto) (NEGATIVE) /HPF Urine RBC (0-5) Pernell/ul Ur Culture Indicated? Urine Glucose (NEGATIVE) mg/dL Theophylline (10-20) ug/mL Influenza Type A Ag (NEGATIVE) Influenza Type B Ag (NEGATIVE) RSV (PCR) (Negative) SARS-CoV-2 (PCR) (NEGATIVE) Slides for Path Review Radiology Exams: Radiology Procedures Category Date Time Status ABDOMEN AND PELVIS W CONTRAST [CT] Stat Exams 01/05/22 10:42 Completed CHEST 1 VIEW (PORTABLE) Stat Exams 01/05/22 11:22 Completed HEAD WITHOUT CONTRAST [CT] Stat Exams 01/05/22 11:57 Completed Assessment/Plan (1) Sepsis Current Visit: Yes Status: Acute Qualifiers: Sepsis type: Pneumococcus Sepsis acute organ dysfunction status: with acute organ dysfunction Severe sepsis acute organ dysfunction type: unspecified Severe sepsis shock status: with septic shock Qualified Code(s): A40.3 - Sepsis due to Streptococcus pneumoniae; R65.21 - Severe sepsis with septic shock (2) Non-ST elevation CA (NSTEMI) Current Visit: Yes Status: Acute Code(s): I21.4 - NON-ST ELEVATION (NSTEMI) MYOCARDIAL INFARCTION (3) Dehydration Current Visit: Yes Status: Acute Code(s): E86.0 - DEHYDRATION (4) Hyponatremia Current Visit: Yes Status: Acute Code(s): E87.1 - HYPO-OSMOLALITY AND HYPONATREMIA (5) Theophylline toxicity Current Visit: Yes Status: Acute Code(s): R89.2 - ABN LEV DRUG/MEDS/BIOL SUBST IN SPECIMENS FROM OTH ORG/TISS; T48.6X1A - POISONING BY ANTIASTHMATICS, ACCIDENTAL, INIT
[2022-01-06] MEDS: Pepcid 20 MG PO SCH (09:30)
[2022-01-06] MEDS: Vitamin B-12 500 MCG PO SCH (09:30)
[2022-01-06] MEDS: Lopressor 25MG Tab PO SCH ×2 (09:30→21:55)
[2022-01-06] MEDS: Singulair 10 MG PO SCH (09:30)
[2022-01-06] MEDS: Calcium 500MG W/Vit D Tablet PO SCH (09:30)
[2022-01-06] MEDS: MAG-OX 400 PO SCH (09:30)
[2022-01-06] MEDS: SYNTHROID 50 MCG PO SCH (09:30)
[2022-01-06] MEDS: Docusate Sodium 100 MG PO SCH (09:30)
[2022-01-06] MEDS: BUSPAR 5 MG PO SCH ×2 (09:30→21:41)
[2022-01-06] MEDS: Flomax 0.4 MG PO SCH (09:31)
[2022-01-06] MEDS: ENOXAPARIN SODIUM SQ SCH (09:31)
[2022-01-06] MEDS: PATIENT OWN MEDICATION OP SCH ×5 (09:31→21:42)
[2022-01-06] MEDS: Proscar 5 MG PO SCH (09:32)
[2022-01-06] MEDS ORDERED: [UNRECOGNIZED DRUG - OTHER] PO SCH (10:00)
[2022-01-06] MEDS ORDERED: CALCIUM CITRATE PO SCH (10:00)
[2022-01-06] MEDS ORDERED: VITAMIN D3 PO SCH (10:00)
[2022-01-06] MEDS ORDERED: NON-FORMULARY ITEM (Famotidine [Pepcid] 40 MG Tablet) PO SCH (10:00)
[2022-01-06] MEDS ORDERED: PHARMACY DOSING REQUEST MC ONE (13:10)
[2022-01-06] MEDS: AMILORIDE HCL PO SCH (13:59)
[2022-01-06] MEDS: HYDROCODONE-ACETAMIN 10-325 MG PO PRN ×2 (14:00→21:42)
[2022-01-06] MEDS ORDERED: JANTOVEN PO SCH (18:00)
[2022-01-06] MEDS: Ambien 5 MG Tablet PO SCH (21:41)
[2022-01-06] MEDS: Xalatan OP SCH (21:43)
[2022-01-06] MEDS ORDERED: Zocor 10MG PO SCH (22:00)
[2022-01-07 04:54] LABS: Hematocrit 38.6 % (42-50); Hemoglobin 13.4 gm/dl (12.5-18.0); Mean Cell Volume 90.6 fl (78-100); Mean Corpuscular Hemoglobin 31.5 pg (26-32); Mean Corpuscular Hgb Concent. 34.7 g/dl (32-36); Mean Platelet Volume 10.3 fl (7.5-11.0); Platelet Count 173 K/mm3 (150-450); Red Blood Count 4.26 M/mm3 (4.1-5.6); Red Cell Distribution Width 16.5 % (11.5-14.0); White Blood Count 12.3 K/mm3 (4.0-10.5)
[2022-01-07] MEDS: Merrem 1 GM 1 G in Sodium Chloride 100ML MINI-BAG PLUS 100 ML IV SCH ×2 (05:09→16:14)
[2022-01-07] MEDS: Sodium Chloride 0.9% 1000 ML 1,000 ML IV SCH (05:09)
[2022-01-07 05:11] LABS: INR 1.87 (0.8-3.0); PROTIME 22.1 SECONDS (9.4-12.5)
[2022-01-07 05:20] LABS: ALBUMIN 3.2 g/dL (3.5-5.0); ALKALINE PHOSPHATASE 81 U/L (38-126); ANION GAP 10.4 MEQ/L (5-15); BLOOD UREA NITROGEN 21 mg/dL (9-20); CHLORIDE 93 mmol/L (98-107); Carbon Dioxide 26 mmol/L (22-30); Creatinine 1 0.88 mg/dL (0.66-1.25); EST GLOMERULAR FILTRATION RATE > 60.0 ML/MIN; Glucose 91 mg/dL (74-106); Potassium 3.3 mmol/L (3.5-5.1); SGOT/AST 36 U/L (17-59); SGPT/ALT 20 U/L (0-50); SODIUM 126 mmol/L (137-145); Total Protein 5.8 g/dL (6.3-8.2)
[2022-01-07] MEDS: HYDROCODONE-ACETAMIN 10-325 MG PO PRN ×2 (06:36→12:24)
[2022-01-07] MEDS: PROVENTIL 2.5 MG/3 ML NEB IH SCH ×3 (06:44→15:08)
[2022-01-07] MEDS: Advair Hfa 115/21 Common canister IH SCH (06:44)
[2022-01-07] MEDS: Klor Con 10 MEQ PO SCH ×3 (07:56→16:13)
[2022-01-07] MEDS: PATIENT OWN MEDICATION OP SCH ×3 (10:12→15:09)
[2022-01-07] MEDS: Calcium 500MG W/Vit D Tablet PO SCH (10:13)
[2022-01-07] MEDS: Pepcid 20 MG PO SCH (10:13)
[2022-01-07] MEDS: SYNTHROID 50 MCG PO SCH (10:14)
[2022-01-07] MEDS: Flomax 0.4 MG PO SCH (10:14)
[2022-01-07] MEDS: MAG-OX 400 PO SCH (10:14)
[2022-01-07] MEDS: Docusate Sodium 100 MG PO SCH (10:14)
[2022-01-07] MEDS: Lopressor 25MG Tab PO SCH (10:14)
[2022-01-07] MEDS: BUSPAR 5 MG PO SCH (10:15)
[2022-01-07] MEDS: Proscar 5 MG PO SCH (10:15)
[2022-01-07] MEDS: Singulair 10 MG PO SCH (10:15)
[2022-01-07] MEDS: Vitamin B-12 500 MCG PO SCH (10:15)
[2022-01-07] MEDS: AMILORIDE HCL PO SCH (15:08)
[2022-01-07 15:51] VITALS: BP 95/55; PULSE 73; O2SAT 93
--- NOTE | 2022-01-08 15:53 | PCM.DS ---
Discharge Summary Date of Admission: 01/05/22 14:47 Admitting Physician: PATRICIA COWAN Primary Care Provider: PATRICIA COWAN Allergies Allergies Penicillins Allergy (Verified 01/05/22 10:50) strawberry Allergy (Verified 01/05/22 10:50) watermelon Allergy (Verified 01/05/22 10:50) Hospital Summary - Hospital Course Hospital Course: Chief Complaint Diagnosis weakness for 2-3 days Allergies Allergy/AdvReac Type Severity Reaction Status Date / Time Penicillins Allergy Verified 01/05/22 10:50 strawberry Allergy Verified 01/05/22 10:50 watermelon Allergy Verified 01/05/22 10:50 Home Medications Medication Instructions Recorded Confirmed Last Taken Type Levofloxacin [Levofloxacin 250 mg PO DAILY 5 Days #5 tab 01/07/22 Unknown Rx 250MG Tablet] Current Medications Discontinued Medications Generic Name Dose Route Start Last Admin Trade Name Freq PRN Reason Stop Dose Admin Hydrocodone Bitart/Acetaminophen 1 tablet 01/05/22 16:32 01/07/22 12:24 Hydrocodone/Acetamin 10-325 Mg Tablet PO 01/10/22 16:31 1 tablet Q6H PRN PRN Administration PAIN Albuterol Sulfate 2.5 mg 01/05/22 19:00 01/07/22 15:08 Albuterol Sulfate 2.5 Mg/3 Ml Neb IH 02/04/22 18:59 2.5 mg QIDRT VERA Administration Amiloride HCl 5 mg 01/05/22 17:00 01/07/22 15:08 Amiloride Hcl 5 Mg Tablet PO 02/04/22 16:59 5 mg 1400 VERA Administration Buspirone HCl 5 mg 01/05/22 22:00 01/07/22 10:15 Buspirone Hcl 5 Mg Tablet PO 02/04/22 21:59 5 mg BID VERA Administration Calcium Carbonate 1 tab 01/06/22 10:00 01/07/22 10:13 Calcium Carbonate 500 Mg/Vitamin D 1 Tab Tablet PO 02/05/22 09:59 1 tab DAILY VERA Administration Methylprednisolone Sodium 0 mg 01/05/22 11:50 01/05/22 11:53 Succinate 125 mg/ Sterile IV 01/05/22 11:51 125 mg Water 2 ml STAT ONE Administration Cyanocobalamin 500 mcg 01/06/22 10:00 01/07/22 10:15 Cyanocobalamin 500 Mcg Tablet PO 02/05/22 09:59 500 mcg DAILY VERA Administration Diltiazem HCl 10 mg 01/05/22 14:08 01/05/22 14:16 Diltiazem Hcl Iv 5 Mg/Ml Vial IV 01/05/22 14:09 10 mg STAT ONE Administration Diltiazem HCl Confirm 01/05/22 14:11 Diltiazem Hcl Iv 5 Mg/Ml Vial Administered 01/05/22 14:12 Dose 50 mg IV .STK-MED ONE Diphenhydramine HCl 50 mg 01/05/22 11:49 01/05/22 11:52 Diphenhydramine Hcl 50 Mg/Ml Vial IV 01/05/22 11:50 50 mg STAT ONE Administration Diphenhydramine HCl Confirm 01/05/22 11:51 Diphenhydramine Hcl 50 Mg/Ml Vial Administered 01/05/22 11:52 Dose 50 mg .ROUTE .STK-MED ONE Docusate Sodium 100 mg 01/06/22 10:00 01/07/22 10:14 Docusate Sodium 100 Mg Capsule PO 02/05/22 09:59 100 mg DAILY VERA Administration Enoxaparin Sodium 80 mg 01/05/22 22:00 01/06/22 09:31 Enoxaparin Sodium 80 Mg/0.8 Ml Syringe SQ 02/04/22 21:59 80 mg BID VERA Administration Famotidine 40 mg 01/06/22 10:00 01/07/22 10:13 Famotidine 20 Mg Tablet PO 02/05/22 09:59 40 mg DAILY VERA Administration Finasteride 5 mg 01/06/22 10:00 01/07/22 10:15 Finasteride 5 Mg Tablet PO 02/05/22 09:59 5 mg DAILY VERA Administration Sodium Chloride 1,000 mls @ 999 mls/hr 01/05/22 10:41 01/05/22 13:50 Sodium Chloride 0.9% 1000 Ml IV 01/05/22 11:41 Infused .Q1H1M STA Infusion Sodium Chloride Confirm 01/05/22 11:03 Sodium Chloride 0.9% 1000 Ml Administered 01/05/22 11:04 Dose 1,000 mls @ ud .ROUTE .STK-MED ONE Meropenem 1 g/ Sodium Chloride 100 mls @ 200 mls/hr 01/05/22 11:59 01/05/22 13:20 IV 01/05/22 12:28 Not Given STAT ONE Sodium Chloride Confirm 01/05/22 12:07 Sodium Chloride 0.9% 100 Ml Bag Administered 01/05/22 12:08 Dose 100 mls @ ud .ROUTE .STK-MED ONE Sodium Chloride 1,000 mls @ 75 mls/hr 01/05/22 12:15 01/07/22 05:09 Sodium Chloride 0.9% 1000 Ml IV 02/04/22 12:14 150 mls/hr .[id number] VERA Administration Meropenem 1 g/ Sodium Chloride 100 mls @ 200 mls/hr 01/05/22 12:45 01/05/22 13:12 IV 01/08/22 12:44 200 mls/hr Q8HT VERA Administration Meropenem 1 g/ Sodium Chloride 100 mls @ 200 mls/hr 01/05/22 22:00 01/07/22 16:14 IV 01/08/22 21:59 Not Given Q8HT VERA Diltiazem HCl 100 mls @ 5 mls/hr 01/05/22 14:07 01/05/22 23:49 Cardizem Drip 100 Mg/100 Ml D5w IV 02/04/22 14:06 0 mg/hr .Q20H PRN 0 mls/hr HEART RATE/ A-FIB Titration Protocol 5 MG/HR Latanoprost 0 ml 01/05/22 22:00 01/06/22 21:43 Latanoprost 2.5 Ml Bottle OP 02/04/22 21:59 2.5 ml HS VERA Administration Levothyroxine Sodium 50 mcg 01/06/22 10:00 01/07/22 10:14 Levothyroxine Sodium 50 Mcg Tablet PO 02/05/22 09:59 50 mcg QAM VERA Administration Magnesium Oxide 400 mg 01/06/22 10:00 01/07/22 10:14 Magnesium Oxide 400 Mg Tablet PO 02/05/22 09:59 400 mg DAILY VERA Administration Meropenem Confirm 01/05/22 12:06 Meropenem 1 Gm Vial Administered 01/05/22 12:07 Dose 1 g IV .STK-MED ONE Methylprednisolone Sodium Succinate Confirm 01/05/22 11:51 Methylprednis Sod Succ 125 Mg/2 Ml Vial Administered 01/05/22 11:52 Dose 125 mg .ROUTE .STK-MED ONE Metoprolol Tartrate 25 mg 01/05/22 22:00 01/07/22 10:14 Metoprolol Tartrate 25 Mg Tab PO 02/04/22 21:59 25 mg BID VERA Administration Miscellaneous Information 1 each 01/05/22 17:45 Medication Intervention 1 Each Each 02/04/22 17:44 .RN TO CHECK VERA Miscellaneous Information 1 each 01/05/22 17:45 Medication Intervention 1 Each Each 02/04/22 17:44 .RN TO CHECK VERA Miscellaneous Information 1 each 01/05/22 17:45 Medication Intervention 1 Each Each 02/04/22 17:44 .RN TO CHECK VERA Montelukast Sodium 10 mg 01/06/22 10:00 01/07/22 10:15 Montelukast Sodium 10 Mg Tablet PO 02/05/22 09:59 10 mg DAILY VERA Administration Nitroglycerin 0.4 mg 01/05/22 16:32 Nitroglycerin 0.4 Mg Tablet Bottle SL 02/04/22 16:31 Q5MIN PRN MR X 3 PRN CHEST PAIN Non-Formulary Medication 1 each 01/05/22 15:53 01/05/22 20:20 Pharmacy Dosing Request 01/05/22 15:54 1 each STAT ONE Administration Non-Formulary Medication 1 puff 01/05/22 22:00 Budesonide/Formoterol Fumarate [Symbicort 160-4.5 Mcg Inhaler] IH 02/04/22 21:59 BID VERA Non-Formulary Medication 1 each 01/06/22 13:10 01/06/22 14:16 Pharmacy Dosing Request 01/06/22 13:11 1 each STAT ONE Administration Patient Own Medication 0 each 01/05/22 22:00 01/07/22 10:16 Patient Own Med Misc OP 02/04/22 21:59 1 each BID VERA Administration Patient Own Medication 0 each 01/05/22 22:00 01/07/22 15:09 Patient Own Med Misc OP 02/04/22 21:59 1 each TID VERA Administration Potassium Chloride 50 meq 01/05/22 17:00 01/07/22 16:13 Potassium Chloride 10 Meq Tablet PO 02/04/22 16:59 50 meq 1600,2000 VERA Administration Potassium Chloride 60 meq 01/06/22 08:00 01/07/22 12:21 Potassium Chloride 10 Meq Tablet PO 02/05/22 07:59 60 meq 0800,1200 VERA Administration Fluticasone/Salmeterol 2 puff 01/05/22 19:00 01/07/22 06:44 Fluticasone/Salmeterol 115/21 - 120 Puff Common Canister IH 02/04/22 18:59 2 puff BIDRT VERA Administration Simvastatin 50 mg 01/05/22 22:00 01/05/22 21:04 Simvastatin 10 Mg Tablet PO 02/04/22 21:59 50 mg HS VERA Administration Simvastatin 5 mg 01/06/22 22:00 01/06/22 21:41 Simvastatin 10 Mg Tablet PO 02/05/22 21:59 5 mg HS VERA Administration Sterile Water Confirm 01/05/22 11:51 Water For Injection,Sterile 10 Ml Vial Administered 01/05/22 11:52 Dose 10 ml IJ .STK-MED ONE Tamsulosin HCl 0.4 mg 01/06/22 10:00 01/07/22 10:14 Tamsulosin Hcl 0.4 Mg Cap PO 02/05/22 09:59 Not Given DAILY VERA Warfarin Sodium 2 mg 01/06/22 18:00 01/06/22 17:18 Warfarin Sodium 1 Mg Tablet PO 01/07/22 18:01 2 mg COU VERA Administration Zolpidem Tartrate 5 mg 01/05/22 22:00 01/06/22 21:41 Zolpidem Tartrate 5 Mg Tab PO 02/04/22 21:59 5 mg HS VERA Administration Intake & Output (Last 24 hours) 01/06/22 01/07/22 01/08/22 01/09/22 11:59 11:59 11:59 11:59 Intake Total 2644 4327 300 Output Total 4425 7245 900 Balance 569 2252 -600 Weight 85.9 kg - Vitals & Intake/Output Vital Signs: Vital Signs Temperature 98.0 F 01/07/22 15:49 Pulse Rate 73 01/07/22 15:49 Respiratory Rate 18 01/07/22 15:49 Blood Pressure 95/55 01/07/22 15:49 O2 Sat by Pulse Oximetry 93 L 01/07/22 15:49 Intake & Output: Intake & Output 01/06/22 01/07/22 01/08/22 01/09/22 11:59 11:59 11:59 11:59 Intake Total 2644 4327 300 Output Total 2072 2075 900 Balance 569 2252 -600 Weight 85.9 kg - Lab Result Diagrams: 01/07/22 04:15 01/07/22 04:15 Micro Results-Entire Visit: Microbiology 01/05/22 11:03 Blood Culture - Preliminary Blood NO GROWTH TO DATE 01/05/22 10:55 Blood Culture - Preliminary Blood NO GROWTH TO DATE - Procedures and Test Procedures and Tests throughout Hospitalization: Therapy Orders & Screens 01/05/22 17:47 OT Screen per Nursing Assess ONCE Comment: Protocol Order Physician Instructions: Greater than 3 points order OT Admission Screening Reason For Exam: Triggered on Admission Diagnosis: Sepsis Open Wound/Cellutlitis/Pressure Ulcers: No Acute Fx/ORIF/Change in wt bearing status: No Severe MUSCULOSKELETAL pain: No ADL Dysfunction: Yes Acute CVA w/Hemiparesis/Hemiplegia: No Decreased Functional Mobility/Strength: Yes Sprain/Strain: No Acute Post-op Mobility Dysfunction: No Total Points: 4 PT Screen per Nursing Assess ONCE Comment: Protocol Order Physician Instructions: Greater than 3 points order PT Admission Screenin Reason For Exam: Triggered on Admission Diagnosis: Sepsis Open Wound/Cellutlitis/Pressure Ulcers: No Acute Fx/ORIF/Change in wt bearing status: No Severe MUSCULOSKELETAL pain: No ADL Dysfunction: Yes Acute CVA w/Hemiparesis/Hemiplegia: No Decreased Functional Mobility/Strength: Yes Sprain/Strain: No Acute Post-op Mobility Dysfunction: No Total Points: 4 RT Screen per Nursing Assess ONCE Comment: Protocol Order Physician Instructions: Greater than 3 points order RT Admission Screen Reason For Exam: Triggered on Admission Diagnosis: Sepsis Diagnosis: Sepsis Pneumonia: No Home O2: Yes Asthma: No CHF: Yes Home CPAP/BIPAP: No Home Nebs/MDI: Yes Total Points: 13 01/05/22 17:54 Oxygen Nasal Cannula 2 lpm Comment: Diagnosis: Sepsis Respiratory Therapy Assessment DAILY Comment: Diagnosis: Sepsis 01/07/22 10:44 PT Eval & Treat (MD Order) ONCE Reason for Eval:: weakness Diagnosis: weakness for 2-3 days Discharge Exam General Appearance: no apparent distress, alert Neurologic Exam: alert, oriented x 3, cooperative, normal mood/affect, nml cerebellar function, sensation nml, No motor deficits Eye Exam: PERRL, EOMI, eyes nml inspection Ears, Nose, Throat Exam: normal ENT inspection, pharynx normal, moist mucous membranes Neck Exam: normal inspection, non-tender, supple, full range of motion Respiratory Exam: normal breath sounds, lungs clear, No respiratory distress Cardiovascular Exam: regular rate/rhythm, normal heart sounds Gastrointestinal/Abdomen Exam: soft, No tenderness, No mass Male Genitalia Exam: deferred Rectal Exam: deferred Back Exam: normal inspection, normal range of motion, No CVA tenderness, No vertebral tenderness Extremity Exam: normal inspection, normal range of motion Skin Exam: normal color, warm, dry Final Diagnosis/Problem List - Final Discharge Diagnosis/Problem (1) Sepsis Status: Resolved (2) Non-ST elevation HI (NSTEMI) Status: Resolved Code(s): I21.4 - NON-ST ELEVATION (NSTEMI) MYOCARDIAL INFARCTION (3) Dehydration Status: Resolved Code(s): E86.0 - DEHYDRATION (4) Hyponatremia Status: Resolved Code(s): E87.1 - HYPO-OSMOLALITY AND HYPONATREMIA (5) Theophylline toxicity Status: Resolved Code(s): R89.2 - ABN LEV DRUG/MEDS/BIOL SUBST IN SPECIMENS FROM OTH ORG/TISS; T48.6X1A - POISONING BY ANTIASTHMATICS, ACCIDENTAL, INIT - Discharge Discharge Date: 01/07/22 Disposition: HOME HEALTH SERVICE Condition: Stable Prescriptions: New Levofloxacin [Levofloxacin 250MG Tablet] 250 mg PO DAILY 5 Days #5 tab Continue Budesonide/Formoterol Fumarate [Symbicort 160-4.5 Mcg Inhaler] 1 puff IH BID Warfarin Sodium 2 mg [Coumadin 2 MG] 0 mg PO UD@1800 Metoprolol Tartrate 25 mg [Lopressor 25MG Tab] 25 mg PO BID Docusate Sodium 100 mg [Docusate Sodium 100 MG] 100 mg PO DAILY Montelukast Sodium 10 mg [Singulair 10 MG] 10 mg PO DAILY Theophylline Anhydrous 300 mg* [Theodur 300MG] 300 mg PO BID Potassium Chloride 50 meq PO QID Magnesium Oxide 400 mg [Mag-Ox 400] 400 mg PO DAILY Levothyroxine Sodium 50 mcg PO QAM Hydrocodone/Acetaminophen [Hydrocodon-Acetaminophn 10-325] 1 tab PO Q6H PRN PRN PRN Reason: Pain Finasteride 5 mg PO DAILY Famotidine [Pepcid] 40 mg PO DAILY Cyanocobalamin (Vitamin B-12) [Vitamin B-12] 500 mcg PO DAILY Calcium Citrate/Vitamin D3 [Calcium Cit 315 mg-D3 250 Unit] 1 tab PO DAILY Bumetanide 1 mg PO BID@0800,1400 Brimonidine/Dorzolamide/Pf [Brimonidine 0.15%-Dorzolam 2%] 1 drop OP BID Brimonidine Tartrate 1 drop OP BID Netarsudil Mesylat/Latanoprost [Rocklatan 0.02%-0.005% Eye Drp] 1 drop OP HS metOLazone [Metolazone] 2.5 mg PO MOWEFR Zolpidem Tartrate 5 mg PO HS Nitroglycerin [Nitrostat] 0.4 mg SL Q5MIN PRN MR X 3 PRN PRN Reason: Chest Pain Lovastatin 10 mg PO HS Buspirone HCl [Buspar] 5 mg PO BID Dorzolamide HCl/Pf [Dorzolamide 2% Eye Drop] 2 drops OP TID Amiloride HCl 5 mg PO .DAILY @ 2PM Tamsulosin HCl 0.4 mg [Flomax 0.4 MG] 0.4 mg PO DAILY Instructions: Atrial Fibrillation (DC) Additional Instructions: REFERRAL SENT TO [facility]. THEY WILL CONTACT YOU TO SET UP A VISIT. THEIR PHONE NUMBER IS [phone] Follow up with: PATRICIA COWAN MD [Primary Care Provider] - 01/15/22 10:30 am Forms: Discharge Instructions
== END 2022-01-07 17:10 | disposition home health service (06) ==
LOC: ED 10:32 → ICU 14:47 → MED SURG 01-06 12:55
PROVIDERS: ADMIT General Practice; ATTEND General Practice
DX: A41.9 Sepsis, unspecified organism (principal); I21.4 Non-ST elevation (NSTEMI) myocardial infarction; E86.0 Dehydration; E87.1 Hypo-osmolality and hyponatremia; I10 Essential (primary) hypertension; R89.2 Abnormal level of other drugs, medicaments and biological substances in specimens from other organs, systems and tissues; R41.82 Altered mental status, unspecified; T48.6X1A Poisoning by antiasthmatics, accidental (unintentional), initial encounter; I25.10 Atherosclerotic heart disease of native coronary artery without angina pectoris; W18.30XA Fall on same level, unspecified, initial encounter; S30.1XXA Contusion of abdominal wall, initial encounter; Z79.899 Other long term (current) drug therapy; Z79.01 Long term (current) use of anticoagulants; Z20.828 Contact with and (suspected) exposure to other viral communicable diseases
CPT/HCPCS: 0241U; 36000; 36415; 51702; 70450; 71045; 74177; 80053; 80198; 81015; 82150; 83605; 83690; 84132; 84145; 84484; 85025; 85027; 85610; 87040; 93005; 93268; 94640; 94760; 96360; 96365; 96367; 96374; 96375; 97161; 99285; G0378; J1200; J1650; J2930; J7609; A9270-GY